=== PATIENT | male | born 1950 | race Caucasian/White ===

== ENCOUNTER 2016-03-16 00:32 | Inpatient (IN) | payer OTHER ==
[~2016-03-16] VITALS: Ht 180.3 cm; Wt 108.5 kg
[2016-03-16] VITALS (14 sets, daily range): BP systolic 156–193; BP diastolic 79–112; PULSE 86–108; RESP 18–24; TEMP 98.5; Ht 180.3 cm; Wt 108.5 kg
[~2016-03-16 00:32] MED LIST: FERR140T2 PO; GEMF600T PO; LISI30TA47 PO; NIFE90TA4 PO; [UNRECOGNIZED DRUG - CODE] PO
[2016-03-16] MEDS ORDERED: METHYLPREDNISOLONE 125 MG INJ IV STA (00:45)
[2016-03-16] MEDS ORDERED: ALBUTEROL 0.5% (NEB) 2.5 MG/0.5 ML AMP INH STA (00:45)
[2016-03-16] MEDS ORDERED: IPRATROPIUM (NEB) 0.5 MG/2.5 ML AMP INH STA (00:45)
[2016-03-16 01:11] LABS: BASOPHIL # 0.1 10^3/ul (0.0-0.1); BASOPHILS % 0.8 % (0.0-2.0); EOSINOPHILS # 0.6 10^3/ul (0.0-0.5); EOSINOPHILS % 5.5 % (0.0-7.0); HEMATOCRIT 46.2 % (42.0-52.0); HEMOGLOBIN 15.1 g/dl (14.0-18.0); LYMPHOCYTES # 3.5 10^3/ul (0.8-2.9); LYMPHOCYTES % 33.2 % (15.0-51.0); MEAN CORPUSCULAR HEMOGLOBIN 26.9 pg (29.0-33.0); MEAN CORPUSCULAR HGB CONC 32.6 g/dl (32.0-37.0); MEAN CORPUSCULAR VOLUME 82.6 fl (82.0-101.0); MEAN PLATELET VOLUME 9.9 fl (7.4-10.4); MONOCYTE # 0.9 10^3/ul (0.3-0.9); MONOCYTES % 9.1 % (0.0-11.0); NEUTROPHIL # 5.4 10^3/ul (1.6-7.5); NEUTROPHILS % 51.4 % (39.0-77.0); PLATELET COUNT 333 10^3/UL (140-440); RED CELL DISTRIBUTION WIDTH 15.2 % (11.5-14.5); UNCORRECTED WBC 10.5 10^3/ul (4.8-10.8); WHITE BLOOD COUNT 10.5 10^3/ul (4.8-10.8)
[2016-03-16 01:20] LABS: CONDITION 1; LH ANALYZER COMMENTS 1
[2016-03-16 01:27] LABS: INR 0.97; PARTIAL THROMBOPLASTIN TIME 26.6 Sec (25.0-35.0); PROTIME 12.9 Sec (12.2-14.2)
[2016-03-16 01:29] LABS: POTASSIUM 4.1 mmol/L (3.5-5.1)
[2016-03-16 01:31] LABS: CREATININE 1.31 mg/dl (0.61-1.24)
[2016-03-16 01:32] LABS: CALCIUM 8.7 mg/dl (8.4-10.2)
[2016-03-16 01:44] LABS: TROPONIN-I 0.048 ng/ml (0.00-0.12)
--- NOTE | 2016-03-16 02:18 | RADRPT ---
PROCEDURE: CHEST - 1 VIEW CLINICAL INDICATION: 65-year-old male with chest pain and shortness of breath. TECHNIQUE: A single frontal AP view of the chest was performed portably. The images were reviewed on a PACS workstation. COMPARISON: Chest x-ray January 11, 2013. FINDINGS: The cardiomediastinal silhouette is enlarged but without significant interval change. There is mild -to-moderate pulmonary vascular congestion. There is a shallow inspiration. There is mild bibasila r subsegmental atelectasis. There is no evidence for focal consolidation. There is no evidence for pneumothorax. The osseous structures are intact. IMPRESSION: 1. Cardiomegaly. 2. Pulmonary vascular congestion. 3. Shallow inspiration. 4. Mild bibasilar subsegmental atelectasis. .Jim Nino MD, Date Time Electronically viewed and signed by .Jim Nino MD, MD on 03/16/2016 02:17 .M/
[2016-03-16] MEDS ORDERED: ONDANSETRON 4 MG INJ IV PRN (03:00)
[2016-03-16] MEDS ORDERED: ACETAMINOPHEN 325 MG TAB PO PRN (03:00)
--- NOTE | 2016-03-16 03:05 | ERA ---
ER Documentation Chief Complaint Date/Time DATE: 03/16/16 TIME: 03:01 Chief Complaint shortness of breath 2 hours ago, chest congestion HPI This is a 65-year-old male presents to the emergency room for evaluation of shortness of breath. The patient does state that he felt himself wheezing approximately 2 days ago and has been getting progressively worse. He came in today for evaluation of shortness of breath which progressed to the point which he was having difficulty breathing at rest. The patient states that he has been admitted in the hospital in the past for COPD, and for fluid on his lungs. ROS All systems reviewed and are negative except as per history of present illness. Medications Home Meds Reported Medications Ferrous Sulfate* (Ferrous Sulfate*) 140 Mg Tablet.er, 140 MG PO DAILY 01/11/13 Lisinopril* (Lisinopril*) 30 Mg Tablet, 20 MG PO DAILY 10/06/12 Gemfibrozil* (Lopid*) 600 Mg Tablet, 600 MG PO BID 10/12/09 Atenolol* (Tenormin*) 100 Mg Tablet, 25 MG PO DAILY 10/12/09 Nifedipine (Nifediac Cc) 90 Mg Tablet.sa, 60 MG PO DAILY 10/12/09 Allergies Allergies: Coded Allergies: No Known Allergies (Verified Allergy, Mild, 01/11/13) PMhx/Soc History of Surgery: Yes (GASTRIC SLEEVE) Anesthesia Reaction: No Hx Neurological Disorder: Yes (CVA) Hx Respiratory Disorders: No Hx Cardiac Disorders: Yes (HTN, HIGH CHOLESTEROL) Hx Psychiatric Problems: No Hx Miscellaneous Medical Probl: Yes (DM -- resolved after bariatric surgery) Hx Alcohol Use: No Hx Substance Use: No Hx Tobacco Use: Yes Smoking Status: Former smoker Physical Exam Vitals Vital Signs Date Time Temp Pulse Resp B/P Pulse Ox O2 Delivery O2 Flow Rate FiO2 03/16/16 02:47 86 24 164/97 97 Nasal Cannula 2.0 03/16/16 00:58 83 24 98 Nasal Cannula 4.0 03/16/16 00:58 98 4.0 03/16/16 00:50 Non Rebreather 15 03/16/16 00:36 98.5 102 20 215/119 87 Physical Exam INITIAL VITAL SIGNS: Reviewed by me GENERAL: The patient is well developed and appropriate for usual state of health in no apparent distress HEENT: Pupils equal, round, and reactive to light. EOMI. There is no scleral icterus. NECK: C-spine is soft and supple, there is no meningismus. There is no cervical lymphadenopathy. LUNGS: Rales auscultated in the bilateral lower lobes, with diffuse wheezing in all lobes. HEART: Regular rate and rhythm, no murmurs, clicks, rubs or gallops. ABDOMEN: Soft, non-tender, non-distended. There are bowel sounds in all four quadrants. No rebound or guarding. EXTREMITIES: There is no peripheral cyanosis or edema. No focal swelling or erythema. NEUROLOGICAL: The patient moves all four extremities with 5/5 strength. Cranial nerves II - XII are intact. Normal gait. Alert and oriented SKIN: There is no apparent rash or petechiae. HEME/LYMPHATIC: There is no evidence of excessive bruising or lymphedema. PSYCHIATRIC: The patient does not appear anxious or depressed. Result Diagram: 03/16/16 0052 03/16/16 0052 Results 24 hrs Laboratory Tests Test 03/16/16 00:52 Activated Partial Thromboplast Time 26.6Sec Anion Gap 16 B-Type Natriuretic Peptide 1850PG/ML Basophils # 0.110^3/ul Basophils % 0.8% Blood Morphology Comment Blood Urea Nitrogen 25mg/dl Calcium Level 8.7mg/dl Carbon Dioxide Level 27mmol/L Chloride Level 108mmol/L Creatinine 1.31mg/dl Eosinophils # 0.610^3/ul Eosinophils % 5.5% Glucose Level 114mg/dl Hematocrit 46.2% Hemoglobin 15.1g/dl INR International Normalized Ratio 0.97 Lymphocytes # 3.510^3/ul Lymphocytes % 33.2% Mean Corpuscular Hemoglobin 26.9pg Mean Corpuscular Hemoglobin Concent 32.6g/dl Mean Corpuscular Volume 82.6fl Mean Platelet Volume 9.9fl Monocytes # 0.910^3/ul Monocytes % 9.1% Neutrophils # 5.410^3/ul Neutrophils % 51.4% Nucleated Red Blood Cells # 0.010^3/ul Nucleated Red Blood Cells % 0.0/100WBC Platelet Count 39133^3/UL Potassium Level 4.1mmol/L Prothrombin Time 12.9Sec Prothrombin Time Ratio 1.0 Red Blood Count 5.6010^6/ul Red Cell Distribution Width 15.2% Sodium Level 147mmol/L Troponin I 0.048ng/ml White Blood Count 10.510^3/ul Current Medications Medications (Trade) Dose Ordered Sig/Delmi Route PRN Reason Start Time Stop Time Status Last Admin Dose Admin Albuterol (Proventil 0.5% (Neb)) 15 mg ONCE STAT INH 03/16/16 00:45 03/16/16 00:47 DC 03/16/16 00:56 Ipratropium [place] (Atrovent 0.02% (Neb)) 1 mg ONCE STAT INH 03/16/16 00:45 03/16/16 00:47 DC 03/16/16 00:56 Methylprednisolone Sodium Succinate (Solu-Medrol) 125 mg ONCE STAT IV 03/16/16 00:45 03/16/16 00:47 DC 03/16/16 00:58 Procedures/MDM EKG: #1 Rate/Rhythm: Left bundle branch block QRS, ST, T-waves: [No changes consistent w/ acute ischemia] Impression: Left bundle branch block EKG: #2 Rate/Rhythm: Left bundle branch block QRS, ST, T-waves: [No changes consistent w/ acute ischemia] Impression: Left bundle branch block EKG: #3 Rate/Rhythm: Left bundle branch block QRS, ST, T-waves: [No changes consistent w/ acute ischemia] Impression: Left bundle branch block Chest X-ray 1V Interpreted by me: Soft Tissue: No acute abnormalities Bones: No acute abnormalities Mediastinum/Cardiac Silhouette/Lungs: Pulmonary vascular congestion, cardiomegaly This is a 65-year-old male presents to the emergency room for evaluation of shortness of breath. When I evaluated this patient he had a pulse oxygenation of 87% on room air. He was quickly placed on a nonrebreather. He I did auscultate diffuse rales and wheezing in his lungs and subsequently placed the patient on a breathing treatment with albuterol, Atrovent, and Solu-Medrol. Chest x-ray does show pulmonary vascular congestion and given the patient's history of CHF and a diffuse rales feel that he is fluid overloaded as well as suffering from a COPD exacerbation with hypoxia. The patient will will be placed in for admission at this time on a telemetry floor under the care of Dr. williamson. I did speak to this patient's primary care physician, Stephanie who would like this patient admits her panel physician. Critical Care: Excluding all billable procedures Time: 37 minutes Treatments/Evaluations: Emergent and rapid respiratory assessment and management with continuous monitoring. Advanced airway equipment at the ready, while the patient's respiratory symptoms were stabilized. Departure Diagnosis: Primary Impression: Respiratory failure with hypoxia Additional Impressions: Acute decompensated heart failure Acute bronchitis with COPD Renal insufficiency Condition: Serious PIPO BROWN DO Mar 16, 2016 03:05
[2016-03-16] MEDS ORDERED: FUROSEMIDE 20 MG INJ IV ONE (03:30)
[2016-03-16] MEDS ORDERED: ATOR80TA75 PO (04:14)
[2016-03-16] MEDS ORDERED: CLOP75TA28 PO (04:14)
[2016-03-16] MEDS ORDERED: [UNRECOGNIZED DRUG - OTHER] TRANSDERM (04:14)
[2016-03-16] MEDS ORDERED: CLON-379 PO (04:14)
[2016-03-16] MEDS ORDERED: SILD20TA PO (04:14)
[2016-03-16] MEDS ORDERED: ALFU10TA2 PO (04:14)
[2016-03-16] MEDS ORDERED: MIRA25TA PO (04:14)
[2016-03-16] MEDS ORDERED: LISI40TA9 PO (04:14)
[2016-03-16] MEDS ORDERED: MAGNESIUM HYDROXIDE 30ML CUP PO PRN (05:00)
[2016-03-16] MEDS ORDERED: ALBUTEROL/IPRATROPIUM (NEB) 3 ML AMP HHN PRN (05:00)
[2016-03-16] MEDS ORDERED: morphine 2 MG INJ IV PRN (05:00)
[2016-03-16] MEDS: ALBUTEROL/IPRATROPIUM (NEB) 3 ML AMP HHN SCH ×5 (05:00→21:02)
[2016-03-16] MEDS ORDERED: FUROSEMIDE 20 MG INJ IV SCH (06:00)
[2016-03-16] MEDS: hydrALAzine 20 MG INJ IV PRN ×2 (06:03→11:56)
[2016-03-16] MEDS: MIRABEGRON XX SCH ×2 (08:00→15:01)
[2016-03-16] MEDS: ACETAMINOPHEN 325 MG TAB PO PRN ×2 (08:17→15:55)
[2016-03-16] MEDS: SENNA TAB PO SCH (08:21)
[2016-03-16] MEDS: CLOPIDOGREL 75 MG TAB PO SCH (08:22)
[2016-03-16] MEDS: LISINOPRIL 20 MG TAB PO SCH (08:23)
[2016-03-16] MEDS: HEPARIN 5,000 UNIT/0.5 ML SYG SC SCH ×2 (08:27→21:21)
--- NOTE | 2016-03-16 08:32 | HP ---
DATE OF ADMISSION: 03/16/2016 TIME SEEN: 6 a.m. CHIEF COMPLAINT: Shortness of breath. HISTORY OF PRESENT ILLNESS: The patient is a 65-year-old male with a history of CVA with left-sided weakness, CAD, BPH, abdominal aortic aneurysm, gastritis, diabetes, hypertension, dyslipidemia, who presented to the emergency department with his complaining of shortness of breath and cough. His symptoms have been going on for 1 week and have been progressively getting worse, and as such, mor bergman came to the ER for evaluation. He denied chest pain, nausea, vomiting, diaphoresis, fever, chills , abdominal pain. When he presented to the ER blood pressure was 215/119, heart rate 102, respiratory rate 20, tempera ture 98.5, and he was hypoxic, with an oxygen saturation of 87% on room air. Laboratory value shows a sodium of 147, BUN 25, creatinine 1.31. Otherwise, CBC and BMP are within normal limits. His fi rst troponin is negative and BNP is 1850. Chest x-ray shows cardiomegaly, pulmonary vascular conges tion, shallow inspiration, and mild bibasilar subsegmental atelectasis. The patient was treated wit h albuterol Atrovent, and was given 20 mg of IV Lasix, as well as 125 mg of Solu-Medrol, with improv ement in symptoms. The patient initially was on a 15-liter nonrebreather mask, which quickly improv ed, and now he is on 2 liters, saturating 97 to 100%. REVIEW OF SYSTEMS: A 12-point review of systems was performed and negative except as mentioned in t he HPI. PAST MEDICAL HISTORY: As per HPI. PAST SURGICAL HISTORY: He has a gastric sleeve/bariatric surgery. ALLERGIES: NO KNOWN DRUG ALLERGIES. HOME MEDICATIONS: 1. Alfuzosin. 2. Plavix. 3. Ferrous sulfate. 4. Atenolol. 5. Lipitor. 6. Clonidine. 7. Gemfibrozil. 8. Lisinopril. 9. Nifedipine. 10. Sildenafil. 11. Mirabegron. 12. Oxybutynin. PHYSICAL EXAMINATION: VITAL SIGNS: Recent blood pressure 193/94, heart rate 86, respiratory rate 24, temperature 97.9, ox ygen saturation was 98% on 2 liters. GENERAL: In no acute distress. He is somehow sleepy but arousable and answering questions appropri ately. Obese. HEENT: No obvious head deformity. Pupils are reactive to light. Extraocular muscles intact. CARDIOVASCULAR: Tachycardic, with regular rhythm. LUNGS: He has decreased breath sounds at the bases, with minimal scattered wheezing. ABDOMEN: Soft, nontender, nondistended. Positive bowel sounds. EXTREMITIES: No edema. Slight weakness on the left side of his body. Sensation intact. LABORATORY: Pertinent positives as mentioned in the HPI. IMAGING: Chest x-ray, with results as mentioned in the HPI. IMPRESSION: 1. Shortness of breath, likely a combination of congestive heart failure and chronic obstructive pu lmonary disease exacerbation. 2. History of cerebrovascular accident, with residual left-sided weakness 3. Diabetes. 4. Hypertensive urgency. 5. Probable history of coronary artery disease. 6. Benign prostatic hypertrophy. 7. History of abdominal aortic aneurysm. 8. History of gastritis. PLAN: The patient will be treated both for CHF and COPD exacerbation. He will be diuresed with Las ix. He will be placed on oxygen, bronchodilators, and steroids. Strict ins and outs and will monit or his urine output. He will be continued with his home medications, including his antihypertensive s, but will require adjustment/addition for better blood pressure control. Will obtain a 2D echo. For his diabetes, he will be on insulin while in-house. Further workup and management per clinical course. Dictated By: LUIS ENRIQUE MILLAN/FELICITY Conf#: [id number] DID#: [id number]
[2016-03-16] MEDS ORDERED: SPECIAL NON-STANDARD MEDICATION PO SCH (09:00)
[2016-03-16] MEDS ORDERED: METHYLPREDNISOLONE 125 MG INJ IV SCH (09:00)
[2016-03-16] MEDS ORDERED: OXYBUTYNIN TRANSDERM SCH (09:00)
[2016-03-16 10:05] LABS: CK-MB 1.5 ng/ml (0.0-2.4)
[2016-03-16 10:17] LABS: TROPONIN-I 0.14 ng/ml (0.00-0.12)
--- NOTE | 2016-03-16 10:21 | QN ---
Documentation Comment The patient was seen and examined. Cardiology and pulmonology consult was called. 2D echocardiogram was ordered. Case discussed with Dr. Live. LYNSEY JESSICA NP Mar 16, 2016 10:21
--- NOTE | 2016-03-16 12:11 | CONS ---
Date/Time of Note Date/Time of Note DATE: 03/16/16 TIME: 12:03 Assessment/Plan Assessment/Plan Additional Assessment/Plan Assessment recommendations; 1. Patient admitted with congestive heart failure exacerbation. 2. Poorly controlled hypertension. Next 3. Poor ejection fraction. Next 4. Likely diastolic dysfunction with hypertensive cardiomyopathy. 5. Sleep apnea. 6. Obesity. 7. Hyperlipidemia. 8. Currently no evidence of any asthma exacerbation or any evidence of infection. Next Increase Lasix to 40 mg IV every 12 hours. Resume metoprolol 25 mg twice daily. Continue RM inhibitor. Continue CPAP overnight. Discontinue Solu- Medrol. Cardiology consult is pending. Patient may need a coronary angiogram. Consultation Date/Type/Reason Admit Date/Time Mar 16, 2016 at 03:00 Date of Consultation: Mar 16, 2016 Type of Consultation: Pulmonary Reason for Consultation Pulmonary consultation obtained for evaluation of shortness of breath. History of presenting illness; patient is a 65-year-old pleasant white male who was admitted today with complaints of shortness of breath going on for the last 2 days without any associated chest pain, pressure or any wheezing. Patient denies any fever, any sputum production or hemoptysis. Upon evaluation a chest x-ray was done which is showing significant congestive heart failure the patient has subsequently been admitted. According to him he is "200%" better. Patient has been fairly active until recently when the symptoms started just a few days ago. Denies any high fever, chills any audio aches, myalgias or arthralgias to suggest any viral illness. Denies any abdominal pain, nausea, vomiting. Past medical history: 1. History of sleep apnea currently on CPAP at home. 2. History of CVA a few years ago affecting his left side of the body, patient does have occasional difficulty walking. 3. Severe hypertension which based upon patient's description is essentially very poorly controlled. 4. History of bariatric surgery several years ago she lost 100 pounds but then gained 35 pounds.. 5. History of hyperlipidemia. 6. BPH. 7. No known history of any coronary artery disease or any known history of congestive heart failure per patient. Medications; were reviewed. Allergies; are none. Social history; patient quit smoking several years ago has a long-standing history of 3 pack a day spending. Of at least 15 years. History of alcohol abuse in the past. Next Family history; patient is he has 3 children. 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 Review of systems; denies any headache, any visual changes. Any hearing loss. Any seizures. Any chest pain. Does complain of shortness of breath which is significantly improved since yesterday. Denies any angina. Any wheezing. Any cough, sputum production, hemoptysis. Any abdominal pain. Does complain of frequency of urination, nocturia. Denies any GI symptoms. Sleep apnea is stable. Social History Smoking Status: Former smoker Exam/Review of Systems Vital Signs Vitals Vital Signs Date Time Temp Pulse Resp B/P Pulse Ox O2 Delivery O2 Flow Rate FiO2 03/16/16 11:24 97.8 100 20 180/111 94 03/16/16 10:10 2.0 03/16/16 10:10 Nasal Cannula Intake and Output 03/15/16 03/15/16 03/16/16 15:00 23:00 07:00 Intake Total 250 ml Output Total 600 ml Balance -350 ml Exam HEENT examination; supple neck, positive JVD. No lymphadenopathy. Patient has good dentition. Pupils are midsize reactive to light bilaterally. No thyromegaly. No neck bruits. Pharynx is clear. Chest examination; diminished but clear breath sounds bilaterally. No added sounds. S1-S2 audible no murmurs. Regular rate and rhythm. Abdomen examination; protuberant, nontender. No organomegaly. Bowel sounds audible. Extremity examination; no peripheral edema. Pulses 2+ bilaterally. HARD METALS ENGRAVER HAND examination; cranial nerves are intact. No focal motor deficit. Chest x-ray was reviewed from today which is showing sofy congestive heart failure with significant cardiomegaly. Patient just had a bedside echocardiogram and according to the field support technician the EF is around 25%. Results Result Diagram: 03/16/165103/16/16 0052 Results 24 hrs Laboratory Tests Test 03/16/16 00:52 03/16/16 09:05 Activated Partial Thromboplast Time 26.6 Anion Gap 16 B-Type Natriuretic Peptide 1850 H Basophils # 0.1 Basophils % 0.8 Blood Morphology Comment Blood Urea Nitrogen 25 H Calcium Level 8.7 Carbon Dioxide Level 27 Chloride Level 108 Creatinine 1.31 H Eosinophils # 0.6 H Eosinophils % 5.5 Glucose Level 114 Hematocrit 46.2 Hemoglobin 15.1 INR International Normalized Ratio 0.97 Lymphocytes # 3.5 H Lymphocytes % 33.2 Mean Corpuscular Hemoglobin 26.9 L Mean Corpuscular Hemoglobin Concent 32.6 Mean Corpuscular Volume 82.6 Mean Platelet Volume 9.9 Monocytes # 0.9 Monocytes % 9.1 Neutrophils # 5.4 Neutrophils % 51.4 Nucleated Red Blood Cells # 0.0 Nucleated Red Blood Cells % 0.0 Platelet Count 333 Potassium Level 4.1 Prothrombin Time 12.9 Prothrombin Time Ratio 1.0 Red Blood Count 5.60 Red Cell Distribution Width 15.2 H Sodium Level 147 H Troponin I 0.048 0.140 *H White Blood Count 10.5 Creatine Kinase 170 Creatine Kinase Index 0.9 Creatinine Kinase MB (Mass) 1.50 Medications Medications Current Medications Alfuzosin HCl (Uroxatral) 10 mg QHS PO ; Start 03/16/16 at 21:00 Atorvastatin Calcium (Lipitor) 40 mg QPM PO ; Start 03/16/16 at 21:00 Clopidogrel Bisulfate (plaVIX) 75 mg DAILY PO Last administered on 03/16/16 08: 22; Admin Dose 75 MG; Start 03/16/16 at 09:00 Lisinopril (Zestril) 40 mg DAILY PO Last administered on 03/16/16 08:23; Admin Dose 40 MG; Start 03/16/16 at 09:00 Oxybutynin Chloride (Oxytrol) 1 patch MoTh@09 TRANSDERM Last administered on 08:23; Admin Dose 1 PATCH; Start 03/16/16 at 09:00 Clonidine (Catapres) 0.1 mg TID PO Last administered on 03/16/16 08:22; Admin Dose 0.1 MG; Start 03/16/16 at 09:00 Non-Formulary Medication 1 ea DAILY PO ; Start 03/16/16 at 09:00; Status UNV Acetaminophen (Tylenol Tab) 650 mg Q6H PRN PO PAIN AND OR ELEVATED TEMP Last administered on 03/16/16 08:17; Admin Dose 650 MG; Start 03/16/16 at 05:00 Heparin Sodium (Porcine) (Heparin (5000 Units/0.5 ml)) 5,000 unit BID SC Last administered on 03/16/16 08:27; Admin Dose 5,000 UNIT; Start 03/16/16 at 09:00 Morphine Sulfate (morphine) 2 mg Q4H PRN IV PAIN; Start 03/16/16 at 05:00 Senna (Senokot) 2 tab DAILY PO ; Start 03/16/16 at 09:00 Magnesium Hydroxide (Milk Of Mag) 30 ml DAILY PRN PO CONSTIPATION; Start at 05:00 Furosemide (Lasix) 20 mg DAILY@06 IV Last administered on 03/16/16 06:03; Admin Dose 20 MG; Start 03/16/16 at 06:00 Methylprednisolone Sodium Succinate (Solu-Medrol) 80 mg DAILY IV Last administered on 03/16/16 08:21; Admin Dose 80 MG; Start 03/16/16 at 09:00 Hydralazine HCl (Apresoline) 10 mg Q4H PRN IV ELEVATED BLOOD PRESSURE Last administered on 03/16/16 06:03; Admin Dose 10 MG; Start 03/16/16 at 05:00 Miscellaneous Information (*Order Clarification Bulletin) MEDICATION REQUIRES CLARIFICATION:MYBET... Q8H XX ; Start 03/16/16 at 08:00 CARLA ROBERTSON Mar 16, 2016 12:11
--- NOTE | 2016-03-16 13:39 | RADRPT ---
Echocardiogram Report Patient Name: SHYAM BIGGS Gender: Male Date: 1950 Study Date: 16-Mar-2016 Oracle Programmer Analyst: RM [facility] Location: [id number] Ref. Physician: LYNSEY JESSICA Quality: Technically Difficult Study Procedures: Transthoracic echocardiogram with complete 2D, M-Mode, and doppler examination. Indications: Evaluate Left Ventricular function. 2D/M Mode Doppler Measurement Value Normal Ranges Measurement Value Normal Ranges LVIDd 2D 4.6 3.5 - 5.6 cm AV Peak Gibran 1.4 m/sec LVIDs 2D 3.8 2.1 - 4.1 cm AV Peak PG 8.0 mmHg FS 2D 18.8 % LVOT Peak Gibran 1.0 m/sec LVPWd 2D 1.4 0.6 - 1.1 cm LVOT Peak PG 4.0 mmHg IVSd 2D 1.5 0.6 - 1.1 cm MV E Peak Gibran 1.7 m/sec IVS/LVPW 2D 1.0 AoR Diam 2D 2.6 2.0 - 3.7 cm LA/Ao 2D 2 0 - 1 EDV 2D 98.6 cm3 ESV 2D 52.7 cm3 LA Dimen 2D 4.1 2.3 - 4.0 cm Findings Left Ventricle: Moderate concentric left ventricular hypertrophy. Mild enlargement of left ventricle cavity. Moderate left ventricular systolic dysfunction. Ejection fraction is visually estimated at 35 %. Abnormal Diastolic Function. Right Ventricle: Normal right ventricular size. Normal right ventricular systolic function. Left Atrium: There is mild enlargement of left atrium. Right Atrium: There is mild enlargement of right atrium. Mitral Valve: Mild mitral leaflet calcification. Mild mitral annular calcification. Trace mitral regurgitation. Aortic Valve: Normal appearance of the aortic valve. No significant aortic stenosis or insufficiency. Tricuspid Valve: Normal appearance and function of the tricuspid valve with trace physiologic regurgitation. Pulmonic Valve: Pulmonic valve not well visualized. Pericardium: Normal pericardium with no significant pericardial effusion. Aorta: Normal aortic root. IVC: Dilated IVC with respiratory collapse consistent with elevated right atrial pressure. Conclusions Moderate concentric left ventricular hypertrophy. Mild enlargement of left ventricle cavity. Moderate left ventricular systolic dysfunction. Ejection fraction is visually estimated at 35 %. Abnormal Diastolic Function. Normal right ventricular size. Normal right ventricular systolic function. There is mild enlargement of left atrium. There is mild enlargement of right atrium. No significant valvular stenosis or regurgitation seen. Normal pericardium with no significant pericardial effusion. Electronically Signed By: Troy Palumbo 16-Mar-2016 13:38:18 -0800 Patient Name: SHYAM BIGGS Study Date: 16-Mar-2016 [id number]
--- NOTE | 2016-03-16 13:49 | CONS ---
Date/Time of Note Date/Time of Note DATE: 03/16/16 TIME: 13:40 Assessment/Plan Assessment/Plan Additional Assessment/Plan Acute decompensated systolic and diastolic congestive heart failure Cardiomyopathy with ejection fraction 35% Respiratory failure Left ventricular hypertrophy History of CVA Hypertension Abnormal renal function -Patient still with significant volume overload and was recently put on BiPAP. Would give IV Bumex and drip. Continue oxygenation to maintain O2 sat greater than 92%. Patient being followed by pulmonary. Second set of troponins minimally elevated, would continue serial cardiac enzymes. Aspirin and statin therapy. Would hold off on beta nabila at the current time. Patient currently on RM inhibitor, would watch renal function closely.. Patient also with history of prostate issues. Will obtain renal ultrasound Consultation Date/Type/Reason Admit Date/Time Mar 16, 2016 at 03:00 Type of Consultation: cv Reason for Consultation Shortness of breath Hx of Present Illness This is a 65-year-old male with past medical history of hypertension, CVA who presents with progressive worsening shortness of breath over the past 5-6 days. Symptoms associated with wet cough which is mildly productive. He denies any fevers or chills, chest pain, dizziness or lightheadedness. His blood pressure has been elevated and his medications have been adjusted. He was told to start Lopressor yesterday for the first time, and he took his medication in the afternoon. That evening, patient with worsening shortness of breath. Patient was brought to the emergency room with improvement in symptoms after IV diuretics. Currently had worsening shortness of breath today and was just recently put on BiPAP. Denies any chest pain, dizziness or lightheadedness. 12 point review of systems was performed with all the pertinent positives and negatives mentioned above and all else is negative Past Medical History CVA Medical History: high cholesterol, hypertension Family History Significant Family History: no pertinent family hx Social History Smoking Status: Former smoker Other Social History Lives at home with his family Exam/Review of Systems Vital Signs Vitals Vital Signs Date Time Temp Pulse Resp B/P Pulse Ox O2 Delivery O2 Flow Rate FiO2 03/16/16 13:14 103 22 93 30 03/16/16 12:36 98.0 174/98 Nasal Cannula 3.0 Intake and Output 03/15/16 03/15/16 03/16/16 15:00 23:00 07:00 Intake Total 250 ml Output Total 600 ml Balance -350 ml Exam On BiPAP, able to give history Constitutional: alert, obese, oriented Head: normocephalic, other (On BiPAP) Neck: supple Respiratory: other (Coarse breath sounds bilaterally, scattered crackles, minimal end expiratory wheezing) Cardiovascular: other (S1-S2 heard), regular rate and rhythm Gastrointestinal: bowel sounds, non-tender, other (No guarding), soft Extremities: edema (Trace) Results Result Diagram: 03/16/16 0052 03/16/16 0052 Results 24 hrs Laboratory Tests Test 03/16/16 00:52 03/16/16 09:05 Activated Partial Thromboplast Time 26.6 Anion Gap 16 B-Type Natriuretic Peptide 1850 H Basophils # 0.1 Basophils % 0.8 Blood Morphology Comment Blood Urea Nitrogen 25 H Calcium Level 8.7 Carbon Dioxide Level 27 Chloride Level 108 Creatinine 1.31 H Eosinophils # 0.6 H Eosinophils % 5.5 Glucose Level 114 Hematocrit 46.2 Hemoglobin 15.1 INR International Normalized Ratio 0.97 Lymphocytes # 3.5 H Lymphocytes % 33.2 Mean Corpuscular Hemoglobin 26.9 L Mean Corpuscular Hemoglobin Concent 32.6 Mean Corpuscular Volume 82.6 Mean Platelet Volume 9.9 Monocytes # 0.9 Monocytes % 9.1 Neutrophils # 5.4 Neutrophils % 51.4 Nucleated Red Blood Cells # 0.0 Nucleated Red Blood Cells % 0.0 Platelet Count 333 Potassium Level 4.1 Prothrombin Time 12.9 Prothrombin Time Ratio 1.0 Red Blood Count 5.60 Red Cell Distribution Width 15.2 H Sodium Level 147 H Troponin I 0.048 0.140 *H White Blood Count 10.5 Creatine Kinase 170 Creatine Kinase Index 0.9 Creatinine Kinase MB (Mass) 1.50 Medications Medications Current Medications Alfuzosin HCl (Uroxatral) 10 mg QHS PO ; Start 03/16/16 at 21:00 Atorvastatin Calcium (Lipitor) 40 mg QPM PO ; Start 03/16/16 at 21:00 Clopidogrel Bisulfate (plaVIX) 75 mg DAILY PO Last administered on 03/16/16 08: 22; Admin Dose 75 MG; Start 03/16/16 at 09:00 Lisinopril (Zestril) 40 mg DAILY PO Last administered on 03/16/16 08:23; Admin Dose 40 MG; Start 03/16/16 at 09:00 Oxybutynin Chloride (Oxytrol) 1 patch MoTh@09 TRANSDERM Last administered on 08:23; Admin Dose 1 PATCH; Start 03/16/16 at 09:00 Clonidine (Catapres) 0.1 mg TID PO Last administered on 03/16/16 12:36; Admin Dose 0.1 MG; Start 03/16/16 at 09:00 Non-Formulary Medication 1 ea DAILY PO ; Start 03/16/16 at 09:00; Status UNV Acetaminophen (Tylenol Tab) 650 mg Q6H PRN PO PAIN AND OR ELEVATED TEMP Last administered on 03/16/16 08:17; Admin Dose 650 MG; Start 03/16/16 at 05:00 Heparin Sodium (Porcine) (Heparin (5000 Units/0.5 ml)) 5,000 unit BID SC Last administered on 03/16/16 08:27; Admin Dose 5,000 UNIT; Start 03/16/16 at 09:00 Morphine Sulfate (morphine) 2 mg Q4H PRN IV PAIN; Start 03/16/16 at 05:00 Senna (Senokot) 2 tab DAILY PO ; Start 03/16/16 at 09:00 Magnesium Hydroxide (Milk Of Mag) 30 ml DAILY PRN PO CONSTIPATION; Start at 05:00 Hydralazine HCl (Apresoline) 10 mg Q4H PRN IV ELEVATED BLOOD PRESSURE Last administered on 03/16/16 11:56; Admin Dose 10 MG; Start 03/16/16 at 05:00 Miscellaneous Information (*Order Clarification Bulletin) MEDICATION REQUIRES CLARIFICATION:MYBET... Q8H XX ; Start 03/16/16 at 08:00 Metoprolol Tartrate (Lopressor) 25 mg BID PO ; Start 03/16/16 at 21:00 Bumetanide 1 mg 1 mg NOW ONCE IV ; Start 03/16/16 at 14:00; Stop 03/16/16 at 14: 01; Status UNV Bumetanide/ Dextrose (Bumex/D5W) 30 ml @ 16.667 mls/ hr Q1H48M ONCE IV ; Start 03/16/16 at 14:00; Stop 03/16/16 at 15:47; Status UNV Procedures Procedures ECG demonstrates sinus rhythm at 86 bpm, left bundle branch block, nonspecific STT wave abnormalities Troy Palumbo DO Mar 16, 2016 13:49
[2016-03-16] MEDS ORDERED: BUMETANIDE 3 MG in DEXTROSE 5% 18 ML IV ONE (14:00)
[2016-03-16] MEDS ORDERED: BUMETANIDE 1 MG INJ IV ONE (14:00)
[2016-03-16] MEDS: ASPIRIN 81 MG TAB PO SCH (14:00)
[2016-03-16 14:33] LABS: Allen Test ACCEPTAB; MODE MASK - BIPAP
[2016-03-16 14:34] LABS: CK-MB 1.42 ng/ml (0.0-2.4)
[2016-03-16 14:36] LABS: TROPONIN-I 0.099 ng/ml (0.00-0.12)
[2016-03-16 14:39] LABS: AADO2 Arterial 98.5 mmHg (7.0-24.0); Arterial Base Excess -3.6 mmol/L (-3.0-3); Arterial Fraction of Oxyhgb 94.2 % (93.0-99.0); Arterial MetHb 0.3 % (0.0-1.5); Arterial Total Hemglobin 15.4 g/dl (12.0-18.0)
--- NOTE | 2016-03-16 16:19 | RADRPT ---
PROCEDURE: US Retroperitoneum CLINICAL INDICATION: Renal dysfunction, pain TECHNIQUE: Multiple sonographic images of the kidneys and bladder were obtained. Evaluation was p erformed as well with isaacs scale and color and Doppler evaluation using a curved array transducer. The images were reviewed on a high-resolution PACS workstation. COMPARISON: No prior studies are available for comparison. FINDINGS: The kidneys are well visualized. The right kidney measures 10.5 cm in length. The left kidney measu res 10.4 cm in length. Nonspecific mild amount of left perinephric fluid is identified. No solid jones al mass, calculus, or hydronephrosis is seen. The bladder is grossly unremarkable. IMPRESSION: 1. Nonspecific mild amount of left perirenal fluid is noted, of uncertain etiology. CT may be use ful for further evaluation, as clinically warranted. 2. No hydronephrosis or obstructive uropathy is seen bilaterally. RPTAT: QQ .Rosalio Khan MD, MD Date Time Electronically viewed and signed by .Rosalio Khan MD, on 03/16/2016 16:19 .R/
[2016-03-16] MEDS ORDERED: FUROSEMIDE 40 MG INJ IV SCH (18:00)
[2016-03-16 19:53] LABS: CK-MB 1.59 ng/ml (0.0-2.4)
[2016-03-16 19:55] LABS: TROPONIN-I 0.098 ng/ml (0.00-0.12)
[2016-03-16] MEDS ORDERED: METOPROLOL 25 MG TAB PO SCH (21:00)
[2016-03-16] MEDS: ATORVASTATIN 40 MG TAB PO SCH (21:13)
[2016-03-16] MEDS: ZOLPIDEM 5 MG TAB PO PRN (21:13)
[2016-03-16] MEDS: ALFUZOSIN (SR) 10 MG TAB PO SCH (21:14)
[2016-03-17] VITALS (15 sets, daily range): BP systolic 127–200; BP diastolic 57–103; PULSE 81–139; RESP 18–22
[2016-03-17] MEDS: ALBUTEROL/IPRATROPIUM (NEB) 3 ML AMP HHN SCH ×2 (01:19→05:41)
[2016-03-17] MEDS: BUMETANIDE 1 MG INJ IV SCH ×2 (05:46→17:01)
[2016-03-17 06:18] LABS: ADD SCAN DIFF NO
[2016-03-17 06:19] LABS: BASOPHILS % 0.1 % (0.0-2.0); HEMATOCRIT 43.5 % (42.0-52.0); HEMOGLOBIN 14.1 g/dl (14.0-18.0); LYMPHOCYTES # 1.4 10^3/ul (0.8-2.9); LYMPHOCYTES % 10.3 % (15.0-51.0); MEAN CORPUSCULAR HGB CONC 32.4 g/dl (32.0-37.0); MEAN CORPUSCULAR VOLUME 83.2 fl (82.0-101.0); MONOCYTE # 1.3 10^3/ul (0.3-0.9); MONOCYTES % 9.5 % (0.0-11.0); NEUTROPHIL # 11.1 10^3/ul (1.6-7.5); NEUTROPHILS % 79.7 % (39.0-77.0); PLATELET COUNT 319 10^3/UL (140-415); RED BLOOD COUNT 5.23 10^6/ul (4.70-6.10); RED CELL DISTRIBUTION WIDTH 14.8 % (11.5-14.5); WHITE BLOOD COUNT 13.9 10^3/ul (4.8-10.8)
[2016-03-17 06:49] LABS: ALBUMIN 3.7 g/dl (3.3-4.9); POTASSIUM 3.8 mmol/L (3.5-5.1)
[2016-03-17 06:50] LABS: TROPONIN-I 0.12 ng/ml (0.00-0.12)
[2016-03-17 06:51] LABS: CREATININE 1.25 mg/dl (0.61-1.24)
[2016-03-17 06:52] LABS: ALBUMIN/GLOBULIN RATIO 1.19; BILIRUBIN,INDIRECT 0.4 mg/dl (0-1.1); BILIRUBIN,TOTAL 0.4 mg/dl (0.2-1.3); TOTAL PROTEIN 6.8 g/dl (6.1-8.1)
[2016-03-17 06:53] LABS: CALCIUM 8.7 mg/dl (8.4-10.2)
[2016-03-17 07:02] LABS: PHOSPHORUS 3.4 mg/dl (2.5-4.9)
[2016-03-17 07:03] LABS: CHOL/HDL RATIO 2.7 RATIO; MAGNESIUM 1.9 mg/dl (1.7-2.5)
[2016-03-17 07:08] LABS: CK-MB 2.01 ng/ml (0.0-2.4)
[2016-03-17 07:09] LABS: THYROID STIMULATING HORMONE 1.71 MIU/L (0.465-4.680)
[2016-03-17] MEDS: MIRABEGRON XX SCH ×3 (08:00→16:00)
[2016-03-17] MEDS: SENNA TAB PO SCH (09:00)
[2016-03-17] MEDS: CLOPIDOGREL 75 MG TAB PO SCH (09:14)
[2016-03-17] MEDS: ASPIRIN 81 MG TAB PO SCH (09:14)
[2016-03-17] MEDS: LISINOPRIL 20 MG TAB PO SCH (09:16)
[2016-03-17] MEDS: HEPARIN 5,000 UNIT/0.5 ML SYG SC SCH ×2 (09:21→21:04)
[2016-03-17] MEDS ORDERED: GLUCAGON 1 MG INJ IM PRN (10:00)
[2016-03-17] MEDS ORDERED: GLUCOSE GEL 15 GRAM TUBE PO PRN ×2 (10:00)
[2016-03-17] MEDS ORDERED: GLUCOSE GEL 15 GRAM TUBE BUCCAL PRN (10:00)
[2016-03-17] MEDS ORDERED: DEXTROSE 50% 50 ML SYRINGE IV PRN ×2 (10:00)
--- NOTE | 2016-03-17 11:04 | PN ---
DATE: 03/17/2016 SUBJECTIVE DATA: Verbalizes that he is breathing better. Denies any chest pain. OBJECTIVE DATA: VITAL SIGNS: Temperature 98.0, pulse rate 89, respiratory rate 18, blood pressure 131/78, oxygen saturation 98% on low flow O2. GENERAL: This is an obese male sitting in bed in no apparent distress. HEENT: Head normocephalic and atraumatic. Eyes: Anicteric sclerae. Conjunctivae clear. ENT: Nasal septum is midline. Oral mucosa is moist. NECK: Supple. No JVD noticed. RESPIRATORY: Bilaterally diminished breath sounds. No use of accessory muscles of respiration. A few fine rales heard at the bases. CARDIAC: Regular rate and rhythm. No murmurs heard. ABDOMEN: Soft, nontender, and nondistended. Bowel sounds positive in all 4 quadrants. GENITOURINARY: Deferred. EXTREMITIES: No cyanosis, no clubbing. Trace bilateral pedal edema. Peripheral pulses palpable. NEUROLOGIC: The patient is awake, alert, and oriented. Cranial nerves are grossly intact. LABORATORY AND DIAGNOSTIC DATA: WBC 13.9, hemoglobin 14.1, hematocrit 43.5, platelet count 319. Sodium 142, potassium 3.8, chloride 100, carbon dioxide 23 , anion gap 20, BUN 36, creatinine 1.25, glucose 132, calcium 8.7, phosphorus 3.4, magnesium 1.9. ASSESSMENT AND PLAN: 1. Acute on chronic congestive heart failure exacerbation. Systolic and diastolic dysfunction. Continue diuresis as per cardiology. Continue supplemental oxygen and inhaled bronchodilators. 2. Cardiomyopathy with ejection fraction of 35%, most probably ischemic cardiomyopathy. The patient on RM inhibitors. Cardiology following the patient. 3. Coronary artery disease. Continue dual antiplatelet therapy. 4. Chronic kidney disease. Will monitor the BUN and creatinine closely. Will use nephrotoxic medications with caution . 5. Obstructive sleep apnea. Continue nocturnal CPAP therapy. 6. Type 2 diabetes mellitus. Hemoglobin A1c 7.2. Continue sliding scale insulin. Blood sugars are well controlled. 7. Essential hypertension. Continue antihypertensives. Blood pressure fairly well controlled. 8. Fluid, electrolytes, and nutrition. Continue carbohydrate controlled low cholesterol diet. 9. Deep venous thrombosis prophylaxis. Subcutaneous heparin. 10. Gastrointestinal prophylaxis. Histamine 2 receptor blockers. 11. Plan. Continue diuresis while carefully watching renal function. Continue inhaled bronchodilators and supplemental oxygen. The case was discussed with Dr. Live. LYNSEY LIVE MD, AM/FELICITY Conf#: [id number] DID#: [id number] MTDD
--- NOTE | 2016-03-17 11:07 | CONS ---
Date/Time of Note Date/Time of Note DATE: 03/17/16 TIME: 11:05 Assessment/Plan Assessment/Plan Additional Assessment/Plan Assessment and recommendations; next 1. Patient admitted for decompensated congestive heart failure with significant clinical improvement with and with diuresis. 2. Severe hypertension well controlled now on current treatment regimen. 3. Underlying sleep apnea. 4. Obesity. 5. History of CVA. Continue current treatment. Monitor renal function Consultation Date/Type/Reason Admit Date/Time Mar 16, 2016 at 03:00 Initial Consult Date 03/16/16 Type of Consultation: Pulmonary 24 HR Interval Summary Free Text/Dictation Patient condition is continually improving according to the patient he is markedly improved compared to when he was admitted 2 days ago. Tautness of breath has resolved. Denies any chest pain. Patient slept well last night using his own CPAP machine. General examination; middle-aged man currently in no distress. Exam/Review of Systems Vital Signs Vitals Vital Signs Date Time Temp Pulse Resp B/P Pulse Ox O2 Delivery O2 Flow Rate FiO2 03/17/16 08:45 89 03/17/16 08:30 Nasal Cannula 3.0 03/17/16 07:50 98.0 18 131/78 98 03/17/16 05:41 21 Intake and Output 03/16/16 03/16/16 03/17/16 15:00 23:00 07:00 Intake Total 450 ml 990 ml 450 ml Output Total 1100 ml 1300 ml Balance -650 ml -310 ml 450 ml Exam H EENT examination; supple neck, JVD difficult to see. Pupils are midsize reactive to light. Pharynx is clear. No neck masses, no thyromegaly. Chest examination; clear to auscultation bilaterally. S1-S2 audible, no murmurs. Regular rhythm. Abdomen examination; soft, no organomegaly. Bowel sounds audible. Extremity examination; trace peripheral edema. Pulses 1+ bilaterally. SCRAP CARRIER examination; no focal deficit. Results Result Diagram: 03/17/16 0545 03/17/16 0545 Results 24 hrs Laboratory Tests Test 03/16/16 13:00 03/16/16 13:45 03/16/16 18:57 03/17/16 05:45 Arterial Blood HCO3 20.0 L Arterial Blood Base Excess -3.6 L Arterial Blood Oxygen Saturation 95.4 Zaki Test ACCEPTAB Arterial Blood Gas Puncture Site Right Radial Arterial Blood Carboxyhemoglobin 1.0 Arterial Blood Date Drawn 03/16/2016 1:50:54 PM Arterial Blood Methemoglobin 0.3 Arterial Blood pCO2 (Temp correct) 32.3 L Arterial Blood pH (Temp corrected) 7.409 Arterial Blood pO2 (Temp corrected) 77.5 L Blood Gas A-a O2 Differential 98.5 H Blood Gas Actual Respiration Rate 25 Blood Gas IPAP/EPAP Ratio 12/5 Blood Gas Modality MASK - BIPAP Blood Gas Notified Time 03/16/2016 2:39:32 PM Blood Gas Notified Whom JLD Blood Gas Respiration Rate 14.0 Blood Gas Specimen Source Blood arterial Blood Gas Temperature 37.0 FiO2 30.0 Oxyhemoglobin Percent 94.2 Total Hemoglobin 15.4 Creatine Kinase 153 174 284 H Creatine Kinase Index 0.9 0.9 0.7 Creatinine Kinase MB (Mass) 1.42 1.59 2.01 Troponin I 0.099 0.098 0.120 Alanine Aminotransferase (ALT/SGPT) 27 Albumin 3.7 Albumin/Globulin Ratio 1.19 Alkaline Phosphatase 106 Anion Gap 20 H Aspartate Amino Transf (AST/SGOT) 32 Basophils # 0.0 Basophils % 0.1 Blood Urea Nitrogen 36 #H Calcium Level 8.7 Carbon Dioxide Level 23 Chloride Level 103 Cholesterol Level 146 Cholesterol/HDL Ratio 2.7 Creatinine 1.25 H Direct Bilirubin 0.00 Eosinophils # 0.0 Eosinophils % 0.0 Free Thyroxine 1.09 Globulin 3.10 Glucose Level 132 HDL Cholesterol 54 Hematocrit 43.5 Hemoglobin 14.1 Hemoglobin A1c 7.2 H Indirect Bilirubin 0.4 LDL Cholesterol, Calculated 71 Lymphocytes # 1.4 Lymphocytes % 10.3 L Magnesium Level 1.9 Mean Corpuscular Hemoglobin 27.0 L Mean Corpuscular Hemoglobin Concent 32.4 Mean Corpuscular Volume 83.2 Mean Platelet Volume 11.0 H Monocytes # 1.3 H Monocytes % 9.5 Neutrophils # 11.1 H Neutrophils % 79.7 H Nucleated Red Blood Cells # 0.0 Nucleated Red Blood Cells % 0.0 Phosphorus Level 3.4 Platelet Count 319 Potassium Level 3.8 Red Blood Count 5.23 Red Cell Distribution Width 14.8 H Sodium Level 142 Thyroid Stimulating Hormone (TSH) 1.710 Total Bilirubin 0.4 Total Protein 6.8 Triglycerides Level 106 White Blood Count 13.9 #H Medications Medications Current Medications Alfuzosin HCl (Uroxatral) 10 mg QHS PO Last administered on 03/16/16 21:14; Admin Dose 10 MG; Start 03/16/16 at 21:00 Atorvastatin Calcium (Lipitor) 40 mg QPM PO Last administered on 03/16/16 21:13 ; Admin Dose 40 MG; Start 03/16/16 at 21:00 Clopidogrel Bisulfate (plaVIX) 75 mg DAILY PO Last administered on 03/17/16 09 :14; Admin Dose 75 MG; Start 03/16/16 at 09:00 Lisinopril (Zestril) 40 mg DAILY PO Last administered on 03/17/16 09:16; Admin Dose 40 MG; Start 03/16/16 at 09:00 Oxybutynin Chloride (Oxytrol) 1 patch MoTh@09 TRANSDERM Last administered on 08:23; Admin Dose 1 PATCH; Start 03/16/16 at 09:00 Clonidine (Catapres) 0.1 mg TID PO Last administered on 03/17/16 09:17; Admin Dose 0.1 MG; Start 03/16/16 at 09:00 Non-Formulary Medication 1 ea DAILY PO ; Start 03/16/16 at 09:00; Status UNV Acetaminophen (Tylenol Tab) 650 mg Q6H PRN PO PAIN AND OR ELEVATED TEMP Last administered on 03/16/16 15:55; Admin Dose 650 MG; Start 03/16/16 at 05:00 Heparin Sodium (Porcine) (Heparin (5000 Units/0.5 ml)) 5,000 unit BID SC Last administered on 03/17/16 09:21; Admin Dose 5,000 UNIT; Start 03/16/16 at 09:00 Morphine Sulfate (morphine) 2 mg Q4H PRN IV PAIN; Start 03/16/16 at 05:00 Senna (Senokot) 2 tab DAILY PO ; Start 03/16/16 at 09:00 Magnesium Hydroxide (Milk Of Mag) 30 ml DAILY PRN PO CONSTIPATION; Start at 05:00 Hydralazine HCl (Apresoline) 10 mg Q4H PRN IV ELEVATED BLOOD PRESSURE Last administered on 03/16/16 11:56; Admin Dose 10 MG; Start 03/16/16 at 05:00 Miscellaneous Information (*Order Clarification Bulletin) MEDICATION REQUIRES CLARIFICATION:MYRBE... Q8H XX ; Start 03/16/16 at 08:00 Aspirin (Aspirin) 81 mg DAILY PO Last administered on 03/17/16 09:14; Admin Dose 81 MG; Start 03/16/16 at 14:00 Zolpidem Tartrate (Ambien) 10 mg HS PRN PO INSOMNIA Last administered on 21:13; Admin Dose 10 MG; Start 03/16/16 at 21:00 Diagnostic Test (Pha) (Accucheck) 1 ea 02 XX ; Start 03/18/16 at 02:00 Miscellaneous Information 1 ea NOTE XX ; Start 03/17/16 at 10:00 Glucose (Glutose) 15 gm Q15M PRN PO DECREASED GLUCOSE; Start 03/17/16 at 10:00 Glucose (Glutose) 22.5 gm Q15M PRN PO DECREASED GLUCOSE; Start 03/17/16 at 10: 00 Dextrose (D50w Syringe) 25 ml Q15M PRN IV DECREASED GLUCOSE; Start 03/17/16 at 10:00 Dextrose (D50w Syringe) 50 ml Q15M PRN IV DECREASED GLUCOSE; Start 03/17/16 at 10:00 Glucagon (Glucagen) 1 mg Q15M PRN IM DECREASED GLUCOSE; Start 03/17/16 at 10:00 Glucose (Glutose) 15 gm Q15M PRN BUCCAL DECREASED GLUCOSE; Start 03/17/16 at 10 :00 Famotidine (Pepcid) 20 mg BID PO ; Start 03/17/16 at 11:00 CARLA ROBERTSON Mar 17, 2016 11:07
[2016-03-17] MEDS: FAMOTIDINE 20 MG TAB PO SCH ×2 (11:23→20:54)
[2016-03-17] MEDS: INSULIN ASPART [NOVOLOG] 3 ML PEN SC SCH ×3 (12:56→21:00)
[2016-03-17] MEDS ORDERED: POTASSIUM CHLORIDE (SR) 20 MEQ TAB PO STA (13:35)
--- NOTE | 2016-03-17 13:39 | CONS ---
Date/Time of Note Date/Time of Note DATE: 03/17/16 TIME: 13:37 Assessment/Plan Assessment/Plan Additional Assessment/Plan Acute decompensated systolic and diastolic congestive heart failure Cardiomyopathy with ejection fraction 35% Respiratory failure Left ventricular hypertrophy History of CVA Hypertension Abnormal renal function -Patient with significant improvement in respiratory status after Bumex drip. We will switch Bumex to p.o. from tomorrow. Supplement potassium to maintain above 4.0 and magnesium above 2.0. Will split lisinopril to twice daily dosing secondary to patient complaining of episodes of hypertension in the late afternoon. Start low-dose beta-nabila. Continue antiplatelet and statin therapy. DC planning next 1-2 days. Outpatient ischemic evaluation. Consultation Date/Type/Reason Admit Date/Time Mar 16, 2016 at 03:00 Initial Consult Date 03/16/16 Type of Consultation: cv 24 HR Interval Summary Free Text/Dictation Shortness of breath is much better. Patient off BiPAP. Minimal shortness of breath with exertion. Denies chest pain Exam/Review of Systems Vital Signs Vitals Vital Signs Date Time Temp Pulse Resp B/P Pulse Ox O2 Delivery O2 Flow Rate FiO2 03/17/16 12:30 87 03/17/16 12:26 97.0 18 129/73 98 03/17/16 08:30 Nasal Cannula 3.0 03/17/16 05:41 21 Intake and Output 03/16/16 03/16/16 03/17/16 15:00 23:00 07:00 Intake Total 450 ml 990 ml 450 ml Output Total 1100 ml 1300 ml Balance -650 ml -310 ml 450 ml Exam Eating lunch Constitutional: alert, obese, oriented, well developed Head: normocephalic Neck: supple Respiratory: other (Coarse breath sounds bilaterally, no wheezing) Cardiovascular: other (S1-S2 heard), regular rate and rhythm Gastrointestinal: bowel sounds, non-tender, other (No guarding), soft Extremities: edema Results Result Diagram: 03/17/16 0545 03/17/1645 Results 24 hrs Laboratory Tests Test 03/16/16 13:45 03/16/16 18:57 03/17/16 05:45 03/17/16 11:20 Creatine Kinase 153 174 284 H Creatine Kinase Index 0.9 0.9 0.7 Creatinine Kinase MB (Mass) 1.42 1.59 2.01 Troponin I 0.099 0.098 0.120 Alanine Aminotransferase (ALT/SGPT) 27 Albumin 3.7 Albumin/Globulin Ratio 1.19 Alkaline Phosphatase 106 Anion Gap 20 H Aspartate Amino Transf (AST/SGOT) 32 Basophils # 0.0 Basophils % 0.1 Blood Urea Nitrogen 36 #H Calcium Level 8.7 Carbon Dioxide Level 23 Chloride Level 103 Cholesterol Level 146 Cholesterol/HDL Ratio 2.7 Creatinine 1.25 H Direct Bilirubin 0.00 Eosinophils # 0.0 Eosinophils % 0.0 Free Thyroxine 1.09 Globulin 3.10 Glucose Level 132 HDL Cholesterol 54 Hematocrit 43.5 Hemoglobin 14.1 Hemoglobin A1c 7.2 H Indirect Bilirubin 0.4 LDL Cholesterol, Calculated 71 Lymphocytes # 1.4 Lymphocytes % 10.3 L Magnesium Level 1.9 Mean Corpuscular Hemoglobin 27.0 L Mean Corpuscular Hemoglobin Concent 32.4 Mean Corpuscular Volume 83.2 Mean Platelet Volume 11.0 H Monocytes # 1.3 H Monocytes % 9.5 Neutrophils # 11.1 H Neutrophils % 79.7 H Nucleated Red Blood Cells # 0.0 Nucleated Red Blood Cells % 0.0 Phosphorus Level 3.4 Platelet Count 319 Potassium Level 3.8 Red Blood Count 5.23 Red Cell Distribution Width 14.8 H Sodium Level 142 Thyroid Stimulating Hormone (TSH) 1.710 Total Bilirubin 0.4 Total Protein 6.8 Triglycerides Level 106 White Blood Count 13.9 #H Bedside Glucose 174 Medications Medications Current Medications Alfuzosin HCl (Uroxatral) 10 mg QHS PO Last administered on 03/16/16 21:14; Admin Dose 10 MG; Start 03/16/16 at 21:00 Atorvastatin Calcium (Lipitor) 40 mg QPM PO Last administered on 03/16/16 21:13 ; Admin Dose 40 MG; Start 03/16/16 at 21:00 Clopidogrel Bisulfate (plaVIX) 75 mg DAILY PO Last administered on 03/17/16 09 :14; Admin Dose 75 MG; Start 03/16/16 at 09:00 Lisinopril (Zestril) 40 mg DAILY PO Last administered on 03/17/16 09:16; Admin Dose 40 MG; Start 03/16/16 at 09:00 Oxybutynin Chloride (Oxytrol) 1 patch MoTh@09 TRANSDERM Last administered on 2/ 9/17at 08:23; Admin Dose 1 PATCH; Start 03/16/16 at 09:00 Clonidine (Catapres) 0.1 mg TID PO Last administered on 03/17/16 13:26; Admin Dose 0.1 MG; Start 03/16/16 at 09:00 Non-Formulary Medication 1 ea DAILY PO ; Start 03/16/16 at 09:00; Status UNV Acetaminophen (Tylenol Tab) 650 mg Q6H PRN PO PAIN AND OR ELEVATED TEMP Last administered on 03/16/16 15:55; Admin Dose 650 MG; Start 03/16/16 at 05:00 Heparin Sodium (Porcine) (Heparin (5000 Units/0.5 ml)) 5,000 unit BID SC Last administered on 03/17/16 09:21; Admin Dose 5,000 UNIT; Start 03/16/16 at 09:00 Morphine Sulfate (morphine) 2 mg Q4H PRN IV PAIN; Start 03/16/16 at 05:00 Senna (Senokot) 2 tab DAILY PO ; Start 03/16/16 at 09:00 Magnesium Hydroxide (Milk Of Mag) 30 ml DAILY PRN PO CONSTIPATION; Start at 05:00 Hydralazine HCl (Apresoline) 10 mg Q4H PRN IV ELEVATED BLOOD PRESSURE Last administered on 03/16/16 11:56; Admin Dose 10 MG; Start 03/16/16 at 05:00 Miscellaneous Information (*Order Clarification Bulletin) MEDICATION REQUIRES CLARIFICATION:MYRBE... Q8H XX ; Start 03/16/16 at 08:00 Aspirin (Aspirin) 81 mg DAILY PO Last administered on 03/17/16 09:14; Admin Dose 81 MG; Start 03/16/16 at 14:00 Zolpidem Tartrate (Ambien) 10 mg HS PRN PO INSOMNIA Last administered on 21:13; Admin Dose 10 MG; Start 03/16/16 at 21:00 Diagnostic Test (Pha) (Accucheck) 1 ea 02 XX ; Start 03/18/16 at 02:00 Miscellaneous Information 1 ea NOTE XX ; Start 03/17/16 at 10:00 Glucose (Glutose) 15 gm Q15M PRN PO DECREASED GLUCOSE; Start 03/17/16 at 10:00 Glucose (Glutose) 22.5 gm Q15M PRN PO DECREASED GLUCOSE; Start 03/17/16 at 10: 00 Dextrose (D50w Syringe) 25 ml Q15M PRN IV DECREASED GLUCOSE; Start 03/17/16 at 10:00 Dextrose (D50w Syringe) 50 ml Q15M PRN IV DECREASED GLUCOSE; Start 03/17/16 at 10:00 Glucagon (Glucagen) 1 mg Q15M PRN IM DECREASED GLUCOSE; Start 03/17/16 at 10:00 Glucose (Glutose) 15 gm Q15M PRN BUCCAL DECREASED GLUCOSE; Start 03/17/16 at 10 :00 Famotidine (Pepcid) 20 mg BID PO Last administered on 03/17/16t 11:23; Admin Dose 20 MG; Start 03/17/16 at 11:00 Troy Palumbo DO Mar 17, 2016 13:39
[2016-03-17] MEDS ORDERED: MAGNESIUM SULFATE 2 GM/50 ML 50 ML IVPB ONE (14:00)
[2016-03-17] MEDS: ACETAMINOPHEN 325 MG TAB PO PRN (14:41)
[2016-03-17] MEDS: hydrALAzine 20 MG INJ IV PRN (14:48)
[2016-03-17] MEDS: ATORVASTATIN 40 MG TAB PO SCH (20:52)
[2016-03-17] MEDS: ZOLPIDEM 5 MG TAB PO PRN (20:53)
[2016-03-17] MEDS: ALFUZOSIN (SR) 10 MG TAB PO SCH (20:54)
[2016-03-18] VITALS (9 sets, daily range): BP systolic 152–169; BP diastolic 67–99; PULSE 76–89; RESP 17–20
[2016-03-18] MEDS ORDERED: ACCUCHECK XX SCH (02:00)
[2016-03-18] MEDS: BUMETANIDE 1 MG INJ IV SCH (05:58)
[2016-03-18] MEDS ORDERED: BUMETANIDE 1 MG TAB PO SCH (06:00)
[2016-03-18 06:10] LABS: ADD SCAN DIFF NO
[2016-03-18 06:21] LABS: POTASSIUM 4.2 mmol/L (3.5-5.1)
[2016-03-18 06:24] LABS: CREATININE 1.24 mg/dl (0.61-1.24)
[2016-03-18 06:25] LABS: CALCIUM 8.5 mg/dl (8.4-10.2)
[2016-03-18] MEDS: INSULIN ASPART [NOVOLOG] 3 ML PEN SC SCH ×2 (07:27→11:50)
[2016-03-18 07:33] LABS: PHOSPHORUS 2.5 mg/dl (2.5-4.9)
[2016-03-18 07:34] LABS: MAGNESIUM 2.4 mg/dl (1.7-2.5)
[2016-03-18 07:43] LABS: TROPONIN-I 0.063 ng/ml (0.00-0.12)
[2016-03-18] MEDS: MIRABEGRON XX SCH ×2 (08:00)
[2016-03-18] MEDS: ASPIRIN 81 MG TAB PO SCH (08:47)
[2016-03-18] MEDS: FAMOTIDINE 20 MG TAB PO SCH (08:48)
[2016-03-18] MEDS: SENNA TAB PO SCH (08:48)
[2016-03-18] MEDS: CLOPIDOGREL 75 MG TAB PO SCH (08:48)
[2016-03-18] MEDS: HEPARIN 5,000 UNIT/0.5 ML SYG SC SCH (08:54)
[2016-03-18] MEDS ORDERED: LISINOPRIL 20 MG TAB PO SCH (09:00)
[2016-03-18 10:16] LABS: BASOPHIL # 0.1 10^3/ul (0.0-0.1); BASOPHILS % 0.6 % (0.0-2.0); EOSINOPHILS # 0.2 10^3/ul (0.0-0.5); EOSINOPHILS % 2.4 % (0.0-7.0); HEMATOCRIT 44.6 % (42.0-52.0); HEMOGLOBIN 14.6 g/dl (14.0-18.0); LYMPHOCYTES # 3.2 10^3/ul (0.8-2.9); LYMPHOCYTES % 31.1 % (15.0-51.0); MEAN CORPUSCULAR HEMOGLOBIN 27.2 pg (29.0-33.0); MEAN CORPUSCULAR HGB CONC 32.8 g/dl (32.0-37.0); MEAN PLATELET VOLUME 10.3 fl (7.4-10.4); MONOCYTE # 0.9 10^3/ul (0.3-0.9); MONOCYTES % 8.4 % (0.0-11.0); NEUTROPHIL # 5.9 10^3/ul (1.6-7.5); NEUTROPHILS % 57.5 % (39.0-77.0); PLATELET COUNT 290 10^3/UL (140-440); RED BLOOD COUNT 5.38 10^6/ul (4.70-6.10); RED CELL DISTRIBUTION WIDTH 15.6 % (11.5-14.5); WHITE BLOOD COUNT 10.3 10^3/ul (4.8-10.8)
--- NOTE | 2016-03-18 11:05 | PN ---
Date/Time of Note Date/Time of Note DATE: 03/18/16 TIME: 11:04 Assessment/Plan VTE Prophylaxis VTE Prophylaxis Intervention: SCD's Lines/Catheters [facility] Saline Lock Urinary Cath still in place: No Assessment/Plan Assessment/Plan Acute decompensated systolic and diastolic congestive heart failure Cardiomyopathy with ejection fraction 35% Respiratory failure Left ventricular hypertrophy History of CVA Hypertension Abnormal renal function -Patient with significant improvement in respiratory status after Bumex drip. -po bumex Supplement potassium to maintain above 4.0 and magnesium above 2.0. contitinuie cv meds DC planning next 1-2 days. Outpatient ischemic evaluation. Subjective 24 Hr Interval Summary Free Text/Dictation The patient with no change Exam/Review of Systems Vital Signs Vitals Vital Signs Date Time Temp Pulse Resp B/P Pulse Ox O2 Delivery O2 Flow Rate FiO2 03/18/16 10:21 Nasal Cannula 3.0 03/18/16 08:08 77 03/18/16 07:21 98.5 19 152/85 94 03/17/16 09:00 21 Intake and Output 03/17/16 03/17/16 03/18/16 15:00 23:00 07:00 Intake Total 800 ml 900 ml Output Total 900 ml 1500 ml Balance -100 ml -600 ml Results Result Diagram: 03/18/16 0550 03/18/16 0555 Results 24 hrs Laboratory Tests Test 03/17/16 11:20 03/17/16 16:59 03/17/16 20:50 03/18/16 05:50 Bedside Glucose 174 102 137 Basophils # 0.1 Basophils % 0.6 Blood Morphology Comment Eosinophils # 0.2 Eosinophils % 2.4 Hematocrit 44.6 Hemoglobin 14.6 Lymphocytes # 3.2 H Lymphocytes % 31.1 Mean Corpuscular Hemoglobin 27.2 L Mean Corpuscular Hemoglobin Concent 32.8 Mean Corpuscular Volume 83.0 Mean Platelet Volume 10.3 Monocytes # 0.9 Monocytes % 8.4 Neutrophils # 5.9 Neutrophils % 57.5 Nucleated Red Blood Cells # 0.0 Nucleated Red Blood Cells % 0.0 Platelet Count 290 Red Blood Count 5.38 Red Cell Distribution Width 15.6 H White Blood Count 10.3 # Test 03/18/16 05:55 03/18/16 07:27 Anion Gap 15 Blood Urea Nitrogen 39 H Calcium Level 8.5 Carbon Dioxide Level 25 Chloride Level 107 Creatinine 1.24 Glucose Level 107 Magnesium Level 2.4 Phosphorus Level 2.5 Potassium Level 4.2 Sodium Level 143 Troponin I 0.063 Bedside Glucose 104 Medications Medications Current Medications Alfuzosin HCl (Uroxatral) 10 mg QHS PO Last administered on 03/17/16 20:54; Admin Dose 10 MG; Start 03/16/16 at 21:00 Atorvastatin Calcium (Lipitor) 40 mg QPM PO Last administered on 03/17/16 20: 52; Admin Dose 40 MG; Start 03/16/16 at 21:00 Clopidogrel Bisulfate (plaVIX) 75 mg DAILY PO Last administered on 03/18/16 08 :48; Admin Dose 75 MG; Start 03/16/16 at 09:00 Oxybutynin Chloride (Oxytrol) 1 patch MoTh@09 TRANSDERM Last administered on 08:23; Admin Dose 1 PATCH; Start 03/16/16 at 09:00 Clonidine (Catapres) 0.1 mg TID PO Last administered on 03/18/16 08:47; Admin Dose 0.1 MG; Start 03/16/16 at 09:00 Non-Formulary Medication 1 ea DAILY PO ; Start 03/16/16 at 09:00; Status UNV Acetaminophen (Tylenol Tab) 650 mg Q6H PRN PO PAIN AND OR ELEVATED TEMP Last administered on 03/17/16 14:41; Admin Dose 650 MG; Start 03/16/16 at 05:00 Heparin Sodium (Porcine) (Heparin (5000 Units/0.5 ml)) 5,000 unit BID SC Last administered on 03/18/16 08:54; Admin Dose 5,000 UNIT; Start 03/16/16 at 09:00 Morphine Sulfate (morphine) 2 mg Q4H PRN IV PAIN; Start 03/16/16 at 05:00 Senna (Senokot) 2 tab DAILY PO ; Start 03/16/16 at 09:00 Magnesium Hydroxide (Milk Of Mag) 30 ml DAILY PRN PO CONSTIPATION; Start at 05:00 Hydralazine HCl (Apresoline) 10 mg Q4H PRN IV ELEVATED BLOOD PRESSURE Last administered on 03/17/16 14:48; Admin Dose 10 MG; Start 03/16/16 at 05:00 Miscellaneous Information (*Order Clarification Bulletin) MEDICATION REQUIRES CLARIFICATION:MYRBE... Q8H XX ; Start 03/16/16 at 08:00 Aspirin (Aspirin) 81 mg DAILY PO Last administered on 03/18/16 08:47; Admin Dose 81 MG; Start 03/16/16 at 14:00 Zolpidem Tartrate (Ambien) 10 mg HS PRN PO INSOMNIA Last administered on 20:53; Admin Dose 10 MG; Start 03/16/16 at 21:00 Diagnostic Test (Pha) (Accucheck) 1 ea 02 XX ; Start 03/18/16 at 02:00 Miscellaneous Information 1 ea NOTE XX ; Start 03/17/16 at 10:00 Glucose (Glutose) 15 gm Q15M PRN PO DECREASED GLUCOSE; Start 03/17/16 at 10:00 Glucose (Glutose) 22.5 gm Q15M PRN PO DECREASED GLUCOSE; Start 03/17/16 at 10: 00 Dextrose (D50w Syringe) 25 ml Q15M PRN IV DECREASED GLUCOSE; Start 03/17/16 at 10:00 Dextrose (D50w Syringe) 50 ml Q15M PRN IV DECREASED GLUCOSE; Start 03/17/16 at 10:00 Glucagon (Glucagen) 1 mg Q15M PRN IM DECREASED GLUCOSE; Start 03/17/16 at 10:00 Glucose (Glutose) 15 gm Q15M PRN BUCCAL DECREASED GLUCOSE; Start 03/17/16 at 10 :00 Famotidine (Pepcid) 20 mg BID PO Last administered on 03/18/16 08:48; Admin Dose 20 MG; Start 03/17/16 at 11:00 Lisinopril (Zestril) 20 mg BID PO Last administered on 03/18/16 08:47; Admin Dose 20 MG; Start 03/18/16 at 09:00 Carvedilol (Coreg) 3.125 mg BID PO Last administered on 03/18/16 08:48; Admin Dose 3.125 MG; Start 03/17/16 at 21:00 TRAVIS PATTERSON MD Mar 18, 2016 11:05
--- NOTE | 2016-03-18 12:19 | PDOCDIS ---
Discharge Instructions DIAGNOSIS Discharge Diagnosis: CHF exacerbation. CONDITION Patient Condition: Stable HOME CARE INSTRUCTIONS: Special Diet: Low-cholesterol, carbohydrate controlled OTHER ORDERS: Other Orders: 1. Take medications as per prescription. 2. Take a low-cholesterol, carbohydrate controlled diet. 3. Follow-up with your brushing operator in 2 weeks. 4. Follow-up with your primary care physician 2 weeks. 5. Use nocturnal CPAP. 6. Call 911 or go to the nearest emergency room if you have significant shortness of breath or if you have any chest pain. LYNSEY JESSICA NP Mar 18, 2016 12:19
[2016-03-18] MEDS ORDERED: ASPI81TA3 PO (12:23)
[2016-03-18] MEDS ORDERED: BUME1TAB18 PO (12:23)
[2016-03-18] MEDS ORDERED: LISI20TA11 PO (12:23)
[2016-03-18] MEDS ORDERED: SITA50TA2 PO (12:25)
--- NOTE | 2016-03-18 15:31 | DS ---
DATE OF ADMISSION: 03/16/2016 DATE OF DISCHARGE: 03/18/2016 FINAL DIAGNOSES: 1. Acute on chronic congestive heart failure exacerbation. Systolic and diastolic dysfunction. 2. Ischemic cardiomyopathy with an ejection fraction of 35%. 3. Coronary artery disease. 4. Chronic kidney disease. 5. Obstructive sleep apnea. 6. Type 2 diabetes mellitus. Hemoglobin A1c is 7.2. 7. Essential hypertension. 8. Obesity. 9. History of CVA. CONSULTATIONS: 1. Dr. Seth Kapadia, Pulmonology. 2. Dr. Troy Palumbo, Cardiology. HOSPITAL COURSE: This is a 65-year-old male with a past medical history of a cerebrovascular accident with left-sided weakness, CAD, BPH, gastritis, diabetes , hypertension, dyslipidemia and obstructive sleep apnea, who presented to the emergency department with the chief complaint of shortness of breath and a cough. The patient's symptoms had been going on for a 1-week period and it had been progressively getting worse. The patient denied any chest pain, nausea, vomiting, diaphoresis, fevers, chills, or abdominal pain. In the emergency room , the patient was noticed to have a blood pressure of 215/119. The patient had an oxygen saturation of 87% on room air. The patient's BNP was found to be 1850. The patient's chest x-ray showed pulmonary vascular congestion. In the emergency room, the patient was treated with inhaled bronchodilators, IV Lasix, and a single dose of IV Solu-Medrol. The patient was put on a 100% nonrebreather mask. The patient was later transferred to the telemetry floor for further treatment and evaluation. A cardiology consult and a pulmonary consult was called on this patient. The patient was maintained on supplemental oxygen and inhaled bronchodilators. Pulmonary evaluated the patient and discontinued any IV steroids since pulmonary was suspecting that the patient's acute respiratory failure was most probably secondary to underlying congestive heart failure exacerbation. The patient underwent a 2D echocardiogram that showed cardiomyopathy with an ejection fraction of 35% with systolic and diastolic dysfunction. The patient was maintained on IV Bumex, which was later switched to oral Bumex, with improvement in the patient's symptoms. Hence, the patient' s symptomatology was confirmed to be secondary to congestive heart failure exacerbation for both systolic and diastolic dysfunction. The patient has a history of CAD. The patient was taking Plavix at home. The patient had a single episode of elevated troponins, which then trended down. Hence, the patient was started on dual antiplatelet therapy. The patient was requested to get outpatient ischemic workup. The patient follows up with Dr. Beckford as an outpatient. The patient has underlying chronic kidney disease. The patient's BUN and creatinine were monitored closely. The patient' s renal function remained stable throughout the hospital course. The patient has underlying essential hypertension. The patient's blood pressure was uncontrolled. The patient's blood pressure medications were adjusted multiple times to obtain optimal blood pressure control. The patient was also noted to have type 2 diabetes mellitus with a hemoglobin A1c of 7.2. The patient was noticed to not be taking any diabetic medications at home. The patient was maintained on sliding scale insulin. The patient's random blood glucose levels were stable throughout the hospital course. Upon discharge, the patient will be started on dipeptidyl peptidase-4 inhibitors. The patient is not a good candidate for metformin because of underlying renal failure. The patient has underlying obstructive sleep apnea. The patient was maintained on nocturnal CPAP therapy. The patient had a stable hospital course. The patient was cleared by consultants to be discharged home. The patient denied any complaints at the time of discharge. DISCHARGE DISPOSITION/PLAN: The patient will be discharged home today. The patient was instructed to take medications as per prescription. He was instructed to take a low-cholesterol, carbohydrate-controlled diet. He was instructed to follow up with his heating fixture tender in 2 weeks. He was instructed to follow up with his primary care physician in 2 weeks. He was instructed to use nocturnal CPAP therapy. The patient was instructed to call 911 or go to the nearest emergency room if he has any significant shortness of breath or chest pain. The patient verbalized understanding of his discharge instructions. DISCHARGE PHYSICAL EXAMINATION: GENERAL: This is an obese male sitting in bed in no apparent distress. HEENT: Head normocephalic and atraumatic. Eyes: Anicteric sclerae. Conjunctivae clear. ENT: Nasal septum is midline. Oral mucosa is moist. NECK: Supple. No JVD noticed. RESPIRATORY: Bilaterally diminished breath sounds. No use of accessory muscles of respiration. A few fine rales heard at the bases. CARDIAC: Regular rate and rhythm. No murmurs heard. ABDOMEN: Soft, nontender, and nondistended. Bowel sounds positive in all 4 quadrants. GENITOURINARY: Deferred. EXTREMITIES: No cyanosis, no clubbing. Trace bilateral pedal edema. Peripheral pulses palpable. NEUROLOGIC: The patient is awake, alert, and oriented. Cranial nerves are grossly intact. CONDITION AT DISCHARGE: Stable. DISCHARGE MEDICATIONS: 1. Aspirin 81 mg p.o. daily. 2. Bumex 1 mg p.o. b.i.d. 3. Lisinopril 20 mg p.o. b.i.d. 4. Januvia 50 mg p.o. daily. 5. Alfuzosin 10 mg p.o. at bedtime. 6. Atorvastatin 40 mg p.o. daily. 7. Plavix 75 mg p.o. daily. 8. Ferrous sulfate 140 mg p.o. daily. 9. Gemfibrozil 600 mg p.o. b.i.d. 10. Mirabegron 50 mg p.o. at bedtime. 11. Oxybutynin chloride transdermal Sunday and . 12. Sildenafil citrate 20 mg p.o. daily. PERTINENT LABORATORY AND DIAGNOSTIC DATA: 1. 2D echocardiogram. Ejection fraction of 35%, abnormal diastolic function. Normal right ventricular systolic function. Mild enlargement of the left atrium. Mild enlargement of the right atrium. No significant valvular stenosis or regurgitation seen. Normal pericardium, with no significant pericardial effusion. 2. Renal ultrasound. Nonspecific mild amount of left perirenal fluid is noted of uncertain etiology. No hydronephrosis or obstructive uropathy is seen bilaterally. 3. Chest x-ray. Cardiomegaly. Pulmonary vascular congestion. Shallow inspiration. Mild bibasilar subsegmental atelectasis. 4. Latest CBC: WBC 10.3, hemoglobin 14.6, hematocrit 44.6, platelets 290. 5. Latest BMP: Sodium 143, potassium 4.2, chloride 107, carbon dioxide 28, anion gap 15, BUN 13 and creatinine 1.29, glucose 107, calcium 8.4, phosphorus 2.5, magnesium 2.4. 6. Hemoglobin A1c 7.2. 7. Fasting lipid panel: Triglycerides 106, total cholesterol 146, LDL 71, HDL 54. 8. ABG done on 30% FIO2 via BiPAP mask, pH of 7.479, pCO2 32.3, pO2 77.5, bicarbonate 20.0, oxygen saturation 95.4, base excess -3.6. At this time I would like to thank all the consultants for seeing the patient and providing clinical recommendations. The case and management of this patient was fully discussed with Dr. Karimi. Approximately 40 minutes were spent on coordinating the discharge on this patient. LYNSEY KARIMI MD, AM/FELICITY Conf#: [id number] DID#: [id number] MTDD
== END 2016-03-18 14:36 | disposition home or self-care (01) | DRG 291 ==
LOC: E/R 00:32 → TEL 03:00
PROVIDERS: ADMIT Internal Medicine; ATTEND Internal Medicine
DX: I13.0 Hypertensive heart and chronic kidney disease with heart failure and stage 1 through stage 4 chronic kidney disease, or unspecified chronic kidney disease (principal); I50.43 Acute on chronic combined systolic (congestive) and diastolic (congestive) heart failure; J96.90 Respiratory failure, unspecified, unspecified whether with hypoxia or hypercapnia; J44.1 Chronic obstructive pulmonary disease with (acute) exacerbation; I69.954 Hemiplegia and hemiparesis following unspecified cerebrovascular disease affecting left non-dominant side; J44.0 Chronic obstructive pulmonary disease with (acute) lower respiratory infection; N18.9 Chronic kidney disease, unspecified; Z87.891 Personal history of nicotine dependence; J20.9 Acute bronchitis, unspecified; E78.5 Hyperlipidemia, unspecified; Z98.84 Bariatric surgery status; N40.0 Benign prostatic hyperplasia without lower urinary tract symptoms; I25.10 Atherosclerotic heart disease of native coronary artery without angina pectoris; I25.5 Ischemic cardiomyopathy; G47.33 Obstructive sleep apnea (adult) (pediatric)
CPT/HCPCS: 36415; 36600; 71010; 76775; 80048; 80053; 80061; 82550; 82553; 82803; 82962; 83036; 83735; 83880; 84100; 84439; 84443; 84484; 85025; 85610; 85730; 93005; 93306; 94640; 94644; 94660; 94664; 96374; 96375; J1940; J0360; J1815; J2270; J2930; J3475

== ENCOUNTER 2016-06-11 23:25 | Inpatient (IN) | payer OTHER ==
[~2016-06-11] VITALS: Ht 180.3 cm; Wt 103.5 kg
[~2016-06-11 23:25] MED LIST changes: +ALFU10TA2 PO; +ASPI81TA3 PO; +ATOR80TA75 PO; +BUME1TAB18 PO; +CLOP75TA28 PO; +LISI20TA11 PO; -LISI30TA47 PO; +MIRA25TA PO; -NIFE90TA4 PO; +SILD20TA PO; +SITA50TA2 PO; -[UNRECOGNIZED DRUG - CODE] PO; +[UNRECOGNIZED DRUG - OTHER] TRANSDERM
[2016-06-12 00:16] LABS: ADD SCAN DIFF NO
[2016-06-12 00:19] LABS: BASOPHIL # 0.1 10^3/ul (0.0-0.1); BASOPHILS % 0.8 % (0.0-2.0); EOSINOPHILS # 0.5 10^3/ul (0.0-0.5); HEMATOCRIT 43.1 % (42.0-52.0); HEMOGLOBIN 14.3 g/dl (14.0-18.0); LYMPHOCYTES # 2.7 10^3/ul (0.8-2.9); MEAN CORPUSCULAR HEMOGLOBIN 27.9 pg (29.0-33.0); MEAN CORPUSCULAR HGB CONC 33.2 g/dl (32.0-37.0); MEAN PLATELET VOLUME 11.2 fl (7.4-10.4); MONOCYTE # 0.8 10^3/ul (0.3-0.9); MONOCYTES % 9.2 % (0.0-11.0); NEUTROPHIL # 4.8 10^3/ul (1.6-7.5); NEUTROPHILS % 53.3 % (39.0-77.0); PLATELET COUNT 293 10^3/UL (140-415); RED BLOOD COUNT 5.13 10^6/ul (4.70-6.10); RED CELL DISTRIBUTION WIDTH 15.9 % (11.5-14.5)
[2016-06-12 00:34] LABS: PROTIME 13.2 Sec (12.2-14.2)
[2016-06-12 00:35] LABS: PARTIAL THROMBOPLASTIN TIME 27.3 Sec (25.0-35.0)
[2016-06-12 00:40] LABS: ALANINE AMINOTRANSFERASE 27 IU/L (13-69); ALBUMIN 3.6 g/dl (3.3-4.9); ALBUMIN/GLOBULIN RATIO 1.16; ALKALINE PHOSPHATASE 108 IU/L (42-121); ANION GAP 8 (8-16); ASPARTATE AMINO TRANSFERASE 19 IU/L (15-46); BILIRUBIN,INDIRECT 0.5 mg/dl (0-1.1); BILIRUBIN,TOTAL 0.5 mg/dl (0.2-1.3); BLOOD UREA NITROGEN 34 mg/dl (7-20); CALCIUM 8.7 mg/dl (8.4-10.2); CARBON DIOXIDE 26 mmol/L (21-31); CHLORIDE 108 mmol/L (97-110); CREATININE 1.42 mg/dl (0.61-1.24); GLUCOSE 122 mg/dl (70-220); POTASSIUM 4.1 mmol/L (3.5-5.1); SODIUM 138 mmol/L (135-144); TOTAL PROTEIN 6.7 g/dl (6.1-8.1)
[2016-06-12 00:52] LABS: TROPONIN-I < 0.012 ng/ml (0.00-0.12)
--- NOTE | 2016-06-12 01:19 | ERA ---
ER Documentation Chief Complaint Date/Time DATE: 06/12/16 TIME: 01:18 Chief Complaint blood in stool x 4 hours HPI This is a 66-year-old male with blood in his stool for the past 4 hours. No nausea no vomiting no fevers no chills. No other current complaints. He has had 4 episodes of dark blood in his stool. Patient does have history of gastritis in the past. No chest pain no other current complaints ROS All systems reviewed and are negative except as per history of present illness. Medications Home Meds Active Scripts Sitagliptin* (Januvia*) 50 Mg Tablet, 50 MG PO DAILY, #30 TAB Prov:LYNSEY JESSICA SPIRITUAL MINISTER 03/18/16 Lisinopril* (Lisinopril*) 20 Mg Tablet, 20 MG PO BID for 30 Days, TAB Prov:LYNSEY JESSICA SPIRITUAL MINISTER 03/18/16 Aspirin (Aspirin) 81 Mg Chew, 81 MG PO DAILY for 30 Days, TAB Prov:LYNSEY JESSICA SPIRITUAL MINISTER 03/18/16 Bumetanide* (Bumetanide*) 1 Mg Tablet, 1 MG PO BID DIURETICS for 30 Days, TAB Prov:LYNSEY JESSICA SPIRITUAL MINISTER 03/18/16 Reported Medications Sildenafil Citrate* (Sildenafil Citrate*) 20 Mg Tablet, 20 MG PO DAILY, TAB 03/16/16 Oxybutynin Chloride (Oxytrol) 1 Each Patch.tdsw, 1 EACH TRANSDERM MON & THURS 03/16/16 Mirabegron (Mybetriq) 25 Mg Tab.er.24h, 50 MG PO QHS, TAB 03/16/16 Alfuzosin Hcl* (Alfuzosin Hcl*) 10 Mg Tab.er.24h, 10 MG PO QHS, #30 TAB.SA 03/16/16 Clopidogrel Bisulfate (Clopidogrel) 75 Mg Tablet, 75 MG PO DAILY, #30 TAB 03/16/16 Atorvastatin* (Atorvastatin*) 80 Mg Tablet, 40 MG PO DAILY, #30 TAB 03/16/16 Ferrous Sulfate* (Ferrous Sulfate*) 140 Mg Tablet.er, 140 MG PO DAILY 01/11/13 Gemfibrozil* (Lopid*) 600 Mg Tablet, 600 MG PO BID 10/12/09 Allergies Allergies: Coded Allergies: No Known Allergies (Verified Allergy, Mild, 06/11/16) PMhx/Soc History of Surgery: Yes (Bariatric Surgery - gastric sleeve) Anesthesia Reaction: No Hx Neurological Disorder: No Hx Respiratory Disorders: Yes (COPD) Hx Cardiac Disorders: Yes (STROKE, HTN, HIGH CHOLESTEROL) Hx Psychiatric Problems: No Hx Miscellaneous Medical Probl: Yes (high cholesterol) Hx Alcohol Use: No Hx Substance Use: No Hx Tobacco Use: Yes Smoking Status: Unknown if ever smoked Physical Exam Vitals Vital Signs Date Time Temp Pulse Resp B/P Pulse Ox O2 Delivery O2 Flow Rate FiO2 06/11/16 23:29 97.6 65 20 212/98 97 Physical Exam Const: [] Head: Atraumatic Eyes: Normal Conjunctiva ENT: Normal External Ears, Nose and Mouth. Neck: Full range of motion..~ No meningismus. Resp: Clear to auscultation bilaterally Cardio: Regular rate and rhythm, no murmurs Abd: Soft, non tender, non distended. Normal bowel sounds Skin: No petechiae or rashes Back: No midline or flank tenderness Ext: No cyanosis, or edema Neur: Awake and alert Psych: Normal Mood and Affect Result Diagram: 06/12/16 0005 06/12/16 0005 Results 24 hrs Laboratory Tests Test 06/12/16 00:05 White Blood Count 9.010^3/ul Red Blood Count 5.1310^6/ul Hemoglobin 14.3g/dl Hematocrit 43.1% Mean Corpuscular Volume 84.0fl Mean Corpuscular Hemoglobin 27.9pg Mean Corpuscular Hemoglobin Concent 33.2g/dl Red Cell Distribution Width 15.9% Platelet Count 87401^3/UL Mean Platelet Volume 11.2fl Neutrophils % 53.3% Lymphocytes % 30.0% Monocytes % 9.2% Eosinophils % 6.0% Basophils % 0.8% Nucleated Red Blood Cells % 0.0/100WBC Neutrophils # 4.810^3/ul Lymphocytes # 2.710^3/ul Monocytes # 0.810^3/ul Eosinophils # 0.510^3/ul Basophils # 0.110^3/ul Nucleated Red Blood Cells # 0.010^3/ul Prothrombin Time 13.2Sec Prothrombin Time Ratio 1.0 INR International Normalized Ratio 1.00 Activated Partial Thromboplast Time 27.3Sec Sodium Level 138mmol/L Potassium Level 4.1mmol/L Chloride Level 108mmol/L Carbon Dioxide Level 26mmol/L Anion Gap 8 Blood Urea Nitrogen 34mg/dl Creatinine 1.42mg/dl Glucose Level 122mg/dl Calcium Level 8.7mg/dl Total Bilirubin 0.5mg/dl Direct Bilirubin 0.00mg/dl Indirect Bilirubin 0.5mg/dl Aspartate Amino Transf (AST/SGOT) 19IU/L Alanine Aminotransferase (ALT/SGPT) 27IU/L Alkaline Phosphatase 108IU/L Troponin I < 0.012ng/ml Total Protein 6.7g/dl Albumin 3.6g/dl Globulin 3.10g/dl Albumin/Globulin Ratio 1.16 Lipase 181U/L Procedures/MDM EKG: Rate/Rhythm: Normal Sinus Rhythm QRS, ST, T-waves: No changes consistent w/ acute ischemia Impression: No evidence of ischemia or arrhythmia Chest X-ray 1V Interpreted by me: Soft Tissue: No acute abnormalities Bones: No acute abnormalities Mediastinum/Cardiac Silhouette/Lungs: No acute abnormalities Medical decision-makin-year-old male with lower GI bleed. CT pending at this time. Patient will be admitted to hospitalist for further evaluation and management. Departure Diagnosis: Primary Impression: Lower GI bleed Condition: Serious LUIS ENRIQUE PEREZ June 12, 2016 01:19
--- NOTE | 2016-06-12 01:47 | RADRPT ---
PROCEDURE: CT ABDOMEN/PELVIS WITHOUT CONTRAST CLINICAL INDICATION: 66-year-old male with abdominal pain. TECHNIQUE: The study was performed utilizing a GE [employer] Rockpeed VCT 64-slice CT scanner. Direct axia l sections were obtained through the abdomen and pelvis without the use of intravenous contrast mate rial. Sagittal and coronal reformations were obtained. One or more of the following dose reduction t echniques were utilized: automated exposure control, adjustment of the mA and/or kV according to pat ient's size or use of iterative reconstruction technique. The images were reviewed on a [facility] workst [facility]. CTD/vol = 21.2 mGy; Total Exam DLP = 1463.9 mGy-cm. COMPARISON: CT chest January 11, 2013. FINDINGS: Cardiomegaly is present. Coronary artery calcifications are present. There is minimal bibasilar morris bsegmental atelectasis. There is no evidence for significant pleural effusion. The liver has a nor mal size and contour without focal areas of abnormal density. No intrahepatic nor extrahepatic bilia ry ductal dilatation is seen. The gallbladder contains cholesterol stones without significant wall t hickening or pericholecystic fluid. The pancreas is without areas of abnormal attenuation. The spl een is identified and has a normal size without abnormal density. The adrenal glands are unremarkabl e. The kidneys are mildly atrophic but without abnormal density. No hydroureteronephrosis nor nephro ureterolithiasis is evident. The urinary bladder contains urine. There is again identified evidence for prior gastric surgery. There is leed-xi-wsekklny paraesophageal hiatal hernia. There is retain ed stool within the ascending and transverse colon without obstruction. Multiple diverticula seen within the descending and sigmoid colon without definite surrounding inflammatory changes. The appen kael is visualized and is without abnormal thickening or surrounding inflammatory reaction. There is no significant free fluid. The prostate is not enlarged however there is dense calcification within it. The aortoiliac vessels are calcified and ectatic but without aneurysmal dilatation. Degenerati ve changes are present within the spine. IMPRESSION: 1. Cardiomegaly with coronary artery calcifications. 2. Prior gastric surgery with phzz-pu-kflcypwo paraesophageal hernia as previously visualized. 3. Retained stool without obstruction. 4. Descending and sigmoid colon diverticulosis. 5. No CT evidence for appendicitis. 6. Vascular calcifications. 7. Degenerative changes within the spine. .Jim Nino MD, MD Date Time Electronically viewed and signed by .Jim Nino MD, MD on 06/12/2016 01:47 .Kayla/
--- NOTE | 2016-06-12 01:50 | RADRPT ---
PROCEDURE: CHEST - 1 VIEW CLINICAL INDICATION: 56-year-old male with chest/abdominal pain. TECHNIQUE: A single frontal AP portable view of the chest was performed. The images were reviewed on a PACS workstation. COMPARISON: Chest x-ray March 16, 2016. FINDINGS: The cardiomediastinal silhouette is enlarged. There is a shallow inspiration. There is no evidence for an infiltrate. There is no evidence for congestive heart failure. There is no evidence for pne umothorax. The osseous structures are intact. IMPRESSION: Cardiomegaly. .Jim Nino MD, Date Time Electronically viewed and signed by .Jim Nino MD, on 06/12/2016 01:50 .M/
[2016-06-12] MEDS ORDERED: hydrALAzine 20 MG INJ IV ONE (02:00)
[2016-06-12] MEDS ORDERED: ONDANSETRON 4 MG INJ IV STA (02:05)
[2016-06-12 02:21] VITALS: TEMP 97.6
[2016-06-12 02:54] LABS: URINE BILIRUBIN (Dip) NEGATIVE (NEGATIVE); URINE BLOOD (Dip) NEGATIVE (NEGATIVE); URINE COLOR LT. YELLOW (YELLOW); URINE GLUCOSE (Dip) NEGATIVE (NEGATIVE); URINE KETONES (Dip) NEGATIVE (NEGATIVE); URINE LEUKOCYTE ESTERASE (Dip) NEGATIVE (NEGATIVE); URINE NITRITE (Dip) NEGATIVE (NEGATIVE); URINE UROBILINOGEN (Dip) 0.2 E.U./dL (0.1-1.0)
[2016-06-12 02:55] LABS: ADD UMIC NO; URINE TOTAL PROTEIN (Dip) NEGATIVE (NEGATIVE)
[2016-06-12 03:56] VITALS: Ht 180.3 cm; Wt 103.5 kg
[2016-06-12] MEDS: SOD CHLORIDE 0.9% 1,000 ML IV SCH (04:29)
[2016-06-12 04:30] VITALS: BP 118/74; PULSE 87; RESP 18
[2016-06-12] MEDS ORDERED: LORAZEPAM 2 MG INJ IV ONE (04:30)
[2016-06-12] MEDS ORDERED: hydrALAzine 20 MG INJ IV PRN (04:30)
[2016-06-12] MEDS ORDERED: NACL 0.9% 3 ML SYG IV SCH (04:30)
[2016-06-12] MEDS ORDERED: ONDANSETRON 4 MG INJ IV PRN (04:30)
--- NOTE | 2016-06-12 05:10 | HP ---
Date/Time of Note Date/Time of Note DATE: 06/12/16 TIME: 04:44 Assessment/Plan VTE Prophylaxis VTE Prophylaxis Intervention: contraindicated, SCD's VTE Contraindication Reason: bleeding Lines/Catheters IV Catheter Type (from Nrs): Peripheral IV Central line still needed: No Urinary Cath still in place: No Assessment/Plan Chief Complaint/Hosp Course This is a 66-year-old male being admitted to telemetry floor for: #1 GI bleed: At the current time patient's hemoglobin is stable at 14. We will keep the patient n.p.o. normal saline at 50 cc an hour IV fluids while being careful in the setting of the patient's history of CHF and ejection fraction of 35% according to records from previous admissions. Protonix IV twice daily. Hemoglobin and hematocrit every 6 hours. Consult GI. #2 history of CVA: Patient currently right now is on Plavix and statin. We will hold these current medications at this time especially the Plavix in the setting of GI bleed. Consider restarting meds as per the clinical course.. #3 CHF: Previous records with an ejection fraction of 35%. Patient right now appears to be compensated. We will also consult cardiology of patient's request. #4 Diabetes: We will obtain hemoglobin A1c. Hold sitagliptin at this time, insulin sliding scale. #5 hypertension: We will hold current oral meds, as needed IV hydralazine #6 DVT and GI prophylaxis, currently chemical prophylaxis is contraindicated secondary to GI bleed will put patient on SCDs, Protonix twice daily Further recommendations will be made as per the clinical course Problems: HPI/ROS Admit Date/Time Admit Date/Time June 12, 2016 at 01:53 Hx of Present Illness This is a 66-year-old male with a past medical history of GI bleed, CVA, and CHF who presents to the ED with rectal bleeding. Patient states that around 4 PM yesterday he had to go to the bathroom and ended up having for dark red blood episodes of loose stool. He denies any abdominal pain or any chest pain or any shortness of breath. He denies any vomiting. He does state that in the past he had GI bleed before and at that time he had required approximately 11 units of blood. Patient is also requesting to see his project geophysicist as he has an appointment this week and is afraid he may miss it because of his admission he has questions regarding some of his medications. Allergies: NKDA Medications: See MAR ROS Const: Fatigue Eyes : No pain discharge or redness or change in visual acuity ENT: No pain, sore throat, congestion, congestion, dysphagia or discharge Respiratory: No shortness of breath, cough, sputum, wheezing, or pleuritic pain Cardiovascular: No chest pain, palpitation, PND, or edema GI : As per HPI Genitourinary: No dysuria, hematuria, flank pain , discharge or CVA tenderness Musculoskeletal: No joint pain, back pain, neck pain, restricted range of motion in neck or joints Skin: No rash, bruising or hives Neuro: Residual weakness from his previous CVA in 2012 of the left upper and lower extremity Endocrine: No polyuria, polydipsia, temperature intolerance Psych: No hallucination, depression, anxiety or suicidal ideation Constitutional: improved, no complaints Eyes: no complaints ENT: no complaints Respiratory: no complaints Cardiovascular: no complaints Gastrointestinal: no complaints Genitourinary: no complaints Musculoskeletal: no complaints Skin: no complaints Neurologic: no complaints Endocrine: no complaints Lymphatic: no complaints Psychological: nl mood/affect, no complaints Immunologic: no complaints PMH/Family/Social Past Medical History GI bleed, CVA 2013, CHF, diabetes, htn Past Surgical History Bariatric surgery Family History Significant Family History: hypertension (Mother), other (Alzheimer's in his father) Social History Alcohol Use: occasionally (Quit 30 years ago prior to that he did smoke 3 packs a day for 3 years) Smoking Status: Former smoker Exam/Review of Systems Vital Signs Vitals Vital Signs Date Time Temp Pulse Resp B/P Pulse Ox O2 Delivery O2 Flow Rate FiO2 06/12/16 02:21 97.6 71 17 153/81 100 Room Air Exam Exam General: This is a pleasant obese male in no acute distress The patient is alert oriented -3 lying comfortably in bed. HEENT: Atraumatic, normocephalic. The pupils are equal, round and reactive. Extraocular motor are intact Neck: Supple with full range of motion. No rigidity or meningismus Chest: Nontender Lungs: Clear to auscultation bilaterally no crackles rales or wheezing Heart: Normal S1-S2, Regular rhythm and rate. No murmur, Abdomen: Soft, nontender, nondistended normal bowel sounds. Extremities: Normal to inspection, no edema no cyanosis Neurologic: Normal mental status, cranial nerves II through XII intact. There is some slight difference in the strength of his upper and lower left side extremities compared to the right which is residual from his previous CVA Additional Comments EKG: Rate/Rhythm: Normal Sinus Rhythm QRS, ST, T-waves: No changes consistent w/ acute ischemia Impression: No evidence of ischemia or arrhythmia CT of the abdomen and pelvis IMPRESSION: 1. Cardiomegaly with coronary artery calcifications. 2. Prior gastric surgery with [id number] paraesophageal hernia as previously visualized. 3. Retained stool without obstruction. 4. Descending and sigmoid colon diverticulosis. 5. No CT evidence for appendicitis. 6. Vascular calcifications. 7. Degenerative changes within the spine.' Chest x-ray The cardiomediastinal silhouette is enlarged. There is a shallow inspiration. There is no evidence for an infiltrate. There is no evidence for congestive heart failure. There is no evidence for pneumothorax. The osseous structures are intact. IMPRESSION: Cardiomegaly. Please see dictated reports from radiology for further information for the above imaging studies. Labs Result Diagram: 06/12/16 0005 06/12/16 0005 Medications Medications Current Medications Sodium Chloride (NS) 1,000 ml @ 50 mls/hr Q20H IV Last administered on t 04:29; Admin Dose 50 MLS/HR; Start 06/12/16 at 04:08 Ondansetron HCl (Zofran Inj) 4 mg Q6H PRN IV NAUSEA AND/OR VOMITING; Start 06/12 at 04:30 Pantoprazole (Protonix Iv) 40 mg BID@06,18 IV ; Start 06/12/16 at 09:00 Hydralazine HCl (Apresoline) 10 mg Q6H PRN IV ELEVATED BLOOD PRESSURE; Start at 04:30 DAVID NIELSEN June 12, 2016 04:55
[2016-06-12 07:35] VITALS: BP 136/73; RESP 18
[2016-06-12] MEDS: PANTOPRAZOLE 40 MG INJ IV SCH (08:54)
[2016-06-12 09:22] LABS: ALBUMIN 3.1 g/dl (3.3-4.9); ALBUMIN/GLOBULIN RATIO 1.1; BILIRUBIN,INDIRECT 0.5 mg/dl (0-1.1); BILIRUBIN,TOTAL 0.5 mg/dl (0.2-1.3); CALCIUM 8.3 mg/dl (8.4-10.2); CHOL/HDL RATIO 3.3 RATIO; CREATININE 1.14 mg/dl (0.61-1.24); POTASSIUM 3.9 mmol/L (3.5-5.1); TOTAL PROTEIN 5.9 g/dl (6.1-8.1)
[2016-06-12 10:45] VITALS: BP 132/70
[2016-06-12 11:22] LABS: ADD SCAN DIFF NO
[2016-06-12 11:25] LABS: BASOPHIL # 0.1 10^3/ul (0.0-0.1); BASOPHILS % 0.6 % (0.0-2.0); EOSINOPHILS # 0.3 10^3/ul (0.0-0.5); EOSINOPHILS % 3.5 % (0.0-7.0); HEMATOCRIT 40.3 % (42.0-52.0); HEMOGLOBIN 13.2 g/dl (14.0-18.0); LYMPHOCYTES # 2.2 10^3/ul (0.8-2.9); LYMPHOCYTES % 25.4 % (15.0-51.0); MEAN CORPUSCULAR HEMOGLOBIN 27.6 pg (29.0-33.0); MEAN CORPUSCULAR HGB CONC 32.8 g/dl (32.0-37.0); MEAN CORPUSCULAR VOLUME 84.1 fl (82.0-101.0); MEAN PLATELET VOLUME 11.9 fl (7.4-10.4); MONOCYTE # 0.7 10^3/ul (0.3-0.9); NEUTROPHIL # 5.3 10^3/ul (1.6-7.5); PLATELET COUNT 254 10^3/UL (140-415); RED BLOOD COUNT 4.79 10^6/ul (4.70-6.10); RED CELL DISTRIBUTION WIDTH 16.2 % (11.5-14.5); WHITE BLOOD COUNT 8.5 10^3/ul (4.8-10.8)
[2016-06-12 11:37] LABS: INR 1.1; PROTIME 14.2 Sec (12.2-14.2); PT RATIO 1.1
[2016-06-12] MEDS ORDERED: CLON0.2T5 PO (13:24)
[2016-06-12] MEDS ORDERED: HYDR-3672 PO (13:27)
[2016-06-12 13:29] LABS: HEMOGLOBIN 12.8 g/dl (14.0-18.0)
[2016-06-12] MEDS ORDERED: CARV6.2579 PO (13:29)
[2016-06-12] MEDS ORDERED: ISOS30TA5 PO (13:30)
[2016-06-12] MEDS ORDERED: PARO-37 PO (13:31)
[2016-06-12] MEDS ORDERED: BISACODYL (EC) 5 MG TAB PO ONE (14:00)
--- NOTE | 2016-06-12 14:02 | CONS ---
Date/Time of Note Date/Time of Note DATE: 06/12/16 TIME: 13:40 Assessment/Plan Assessment/Plan Additional Assessment/Plan Assessment * Hematochezia * Lower GI vs upper GI bleed * CT abdomen/pelvis 06/11/2016 * Retained stool without obstruction. Descending and sigmoid colon diverticulosis. * Hypertension * History of Diabetes mellitus * Hx of CHF with EF 35% * Hx of CAD * Obesity * PLan * Bleeding scan today * EGD/colonoscopy 06/13/2016 risks and benefit explained to the patient and agreed with the planned procedure * Monitor H and H q 6 and transfuse 1 unit of PRBC ig hgb lessthan 7.5,2 units of PRBC if hgb less than 7 * PPI Consultation Date/Type/Reason Admit Date/Time June 12, 2016 at 01:53 Date of Consultation: June 12, 2016 Type of Consultation: Gastroenterology Reason for Consultation Lower gi bleed Hx of Present Illness 66 year old male with past medical history of diabetes mellitus,hypertension, obesity congestive heart failure with EF 35%,history of stroke,history of gi bleed last colonoscopy was 2012 finding of diverticulosis,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 Emergency room course revealed a hemoglobin of 14.3 ,CT abdomen/pelvis Cardiomegaly with coronary artery calcifications. Prior gastric surgery with [id number] paraesophageal hernia as previously visualized. Retained stool without obstruction.. Descending and sigmoid colon diverticulosis.. No CT evidence for appendicitis.. Vascular calcifications. Degenerative changes within the spine. On examination on the floor,he had 4 episodes of rectal bleed about 1/2 glass per episode with no abdominal pain,hematemesis ,nausea nor vomiting.Latest hemoglobin is 13.I have explained our plan with the patient and agreed with the planned procedure. Constitutional: improved Eyes: no complaints ENT: no complaints Respiratory: no complaints Cardiovascular: no complaints Gastrointestinal: blood, diarrhea, flatus, passing stool Genitourinary: no complaints Musculoskeletal: no complaints Skin: no complaints Neurologic: no complaints Endocrine: no complaints Lymphatic: no complaints Psychological: nl mood/affect, no complaints Immunologic: no complaints Past Medical History Medical History: congestive heart failure, coronary artery disease, diabetes, GI bleed, high cholesterol, hypertension, other (hx of stroke) Past Surgical History Past Surgical Hx: other (colonoscopy) Family History Significant Family History: no pertinent family hx Social History Alcohol Use: occasionally (Quit 30 years ago prior to that he did smoke 3 packs a day for 3 years) Smoking Status: Former smoker Exam/Review of Systems Vital Signs Vitals Vital Signs Date Time Temp Pulse Resp B/P Pulse Ox O2 Delivery O2 Flow Rate FiO2 06/12/16 10:45 132/70 06/12/16 07:35 98.0 92 18 93 06/12/16 04:30 Room Air Intake and Output 06/11/16 06/11/16 06/12/16 15:00 23:00 07:00 Intake Total 25 ml Output Total 150 ml Balance -125 ml Exam Constitutional: alert, oriented, well developed Psych: nl mood/affect Head: atraumatic, normocephalic Eyes: PERRL, nl conjunctiva, nl sclera ENMT: nl nasal mucosa & septum Neck: non-tender, supple Respiratory: clear to auscultation, normal air movement Cardiovascular: nl pulses, regular rate and rhythm Gastrointestinal: bowel sounds, nl liver, spleen, non-tender, soft, No rebound or guarding, No tender Musculoskeletal: nl extremities to inspection, nl gait and stance Extremities: normal pulses Neurological: TREE SAPPER II-XII intact, nl mental status, nl speech, nl strength Skin: nl turgor, No rash or lesions Lymph: nl lymph nodes Results Result Diagram: 06/12/16 1320 06/12/16 0830 Results 24 hrs Laboratory Tests Test 06/12/16 00:05 06/12/16 02:12 06/12/16 08:30 06/12/16 10:29 White Blood Count 9.0 8.5 Red Blood Count 5.13 4.79 Hemoglobin 14.3 13.2 L Hematocrit 43.1 40.3 L Mean Corpuscular Volume 84.0 84.1 Mean Corpuscular Hemoglobin 27.9 L 27.6 L Mean Corpuscular Hemoglobin Concent 33.2 32.8 Red Cell Distribution Width 15.9 H 16.2 H Platelet Count 293 254 Mean Platelet Volume 11.2 H 11.9 H Neutrophils % 53.3 62.0 Lymphocytes % 30.0 25.4 Monocytes % 9.2 8.0 Eosinophils % 6.0 3.5 Basophils % 0.8 0.6 Nucleated Red Blood Cells % 0.0 0.0 Neutrophils # 4.8 5.3 Lymphocytes # 2.7 2.2 Monocytes # 0.8 0.7 Eosinophils # 0.5 0.3 Basophils # 0.1 0.1 Nucleated Red Blood Cells # 0.0 0.0 Prothrombin Time 13.2 14.2 Prothrombin Time Ratio 1.0 1.1 INR International Normalized Ratio 1.00 1.10 Activated Partial Thromboplast Time 27.3 Sodium Level 138 140 Potassium Level 4.1 3.9 Chloride Level 108 112 H Carbon Dioxide Level 26 22 Anion Gap 8 10 Blood Urea Nitrogen 34 H 33 H Creatinine 1.42 H 1.14 Glucose Level 122 113 Calcium Level 8.7 8.3 L Total Bilirubin 0.5 0.5 Direct Bilirubin 0.00 0.00 Indirect Bilirubin 0.5 0.5 Aspartate Amino Transf (AST/SGOT) 19 18 Alanine Aminotransferase (ALT/SGPT) 27 30 Alkaline Phosphatase 108 98 Troponin I < 0.012 Total Protein 6.7 5.9 L Albumin 3.6 3.1 L Globulin 3.10 2.80 Albumin/Globulin Ratio 1.16 1.10 Lipase 181 Urine Color LT. YELLOW Urine Clarity CLEAR Urine pH 6.0 Urine Specific [place] 1.025 Urine Ketones NEGATIVE Urine Nitrite NEGATIVE Urine Bilirubin NEGATIVE Urine Urobilinogen 0.2 E.U./dL Urine Leukocyte Esterase NEGATIVE Urine Hemoglobin NEGATIVE Urine Glucose NEGATIVE Urine Total Protein NEGATIVE Hemoglobin A1c 6.9 H Triglycerides Level 165 H Cholesterol Level 114 LDL Cholesterol, Calculated 47 HDL Cholesterol 34 Cholesterol/HDL Ratio 3.3 Test 06/12/16 13:20 Hemoglobin 12.8 L Hematocrit 39.0 L Medications Medications Current Medications Sodium Chloride (NS) 1,000 ml @ 50 mls/hr Q20H IV Last administered on 04:29; Admin Dose 50 MLS/HR; Start 06/12/16 at 04:08 Ondansetron HCl (Zofran Inj) 4 mg Q6H PRN IV NAUSEA AND/OR VOMITING; Start 06/12 at 04:30 Pantoprazole (Protonix Iv) 40 mg BID@06,18 IV Last administered on 06/12/16 08: 54; Admin Dose 40 MG; Start 5/8/17 at 09:00 Hydralazine HCl (Apresoline) 10 mg Q6H PRN IV ELEVATED BLOOD PRESSURE; Start at 04:30 Miscellaneous Information Patients own medicat... BID@ XX ; Start 06/12/16 at 10:00 Lorazepam (Ativan) 1 mg Q12H PRN IV anxiety; Start 06/12/16 at 10:00 CARLOS LIND MD June 12, 2016 13:53
--- NOTE | 2016-06-12 14:52 | CONS ---
Date/Time of Note Date/Time of Note DATE: 06/12/16 TIME: 14:44 Assessment/Plan Assessment/Plan Additional Assessment/Plan GI bleed Compensated systolic congestive heart failure Cardiomyopathy with ejection fraction 35% Coronary artery disease Hypertension -Patient currently compensated congestive heart failure with no significant fluid seen on CT of the visualized portions of the lungs. Agree with holding anticoagulation, continue statin therapy. If blood pressure trend remained stable, restart beta-nabila. Consultation Date/Type/Reason Admit Date/Time June 12, 2016 at 01:53 Type of Consultation: cv Reason for Consultation History of congestive heart failure Hx of Present Illness This is a 66-year-old male with past medical history of coronary artery disease , congestive heart failure who presented with loose bloody stools over the past 1-2 days. Patient undergoing GI evaluation. Patient was planned for outpatient cardiology evaluation this week because he was in the hospital, he requested cardiology consultation. He does complain of chronic shortness of breath over the past year. Symptoms can be with activity, at rest. He denies any chest pain, dizziness or lightheadedness. He does complain of abdominal discomfort intermittently over the past couple days. Denies any fevers or chills. 12 point review of systems was performed with all pertinent positives and negatives mentioned above and all else is negative Constitutional: improved Eyes: no complaints ENT: no complaints Respiratory: no complaints Cardiovascular: no complaints Gastrointestinal: blood, diarrhea, flatus, passing stool Genitourinary: no complaints Musculoskeletal: no complaints Skin: no complaints Neurologic: no complaints Endocrine: no complaints Lymphatic: no complaints Psychological: nl mood/affect Immunologic: no complaints Past Medical History Medical History: congestive heart failure, coronary artery disease, diabetes, GI bleed, high cholesterol, hypertension, other (hx of stroke) Past Surgical History Past Surgical Hx: other (colonoscopy) Family History Significant Family History: no pertinent family hx Social History Alcohol Use: occasionally (Quit 30 years ago prior to that he did smoke 3 packs a day for 3 years) Smoking Status: Former smoker Other Social History Lives at home Exam/Review of Systems Vital Signs Vitals Vital Signs Date Time Temp Pulse Resp B/P Pulse Ox O2 Delivery O2 Flow Rate FiO2 06/12/16 10:45 132/70 06/12/16 07:35 98.0 92 18 93 06/12/16 04:30 Room Air Intake and Output 506/11/16 06/12/16 15:00 23:00 07:00 Intake Total 25 ml Output Total 150 ml Balance -125 ml Exam No apparent distress Constitutional: alert, obese, oriented Head: normocephalic Neck: supple Respiratory: other (Coarse breath sounds bilaterally, no wheezing) Cardiovascular: other (S1-S2 heard), regular rate and rhythm Gastrointestinal: bowel sounds, non-tender, other (No guarding), soft Extremities: edema Results Result Diagram: 06/12/16 1320 06/12/16 0830 Results 24 hrs Laboratory Tests Test 06/12/16 00:05 06/12/16 02:12 06/12/16 08:30 06/12/16 10:29 White Blood Count 9.0 8.5 Red Blood Count 5.13 4.79 Hemoglobin 14.3 13.2 L Hematocrit 43.1 40.3 L Mean Corpuscular Volume 84.0 84.1 Mean Corpuscular Hemoglobin 27.9 L 27.6 L Mean Corpuscular Hemoglobin Concent 33.2 32.8 Red Cell Distribution Width 15.9 H 16.2 H Platelet Count 293 254 Mean Platelet Volume 11.2 H 11.9 H Neutrophils % 53.3 62.0 Lymphocytes % 30.0 25.4 Monocytes % 9.2 8.0 Eosinophils % 6.0 3.5 Basophils % 0.8 0.6 Nucleated Red Blood Cells % 0.0 0.0 Neutrophils # 4.8 5.3 Lymphocytes # 2.7 2.2 Monocytes # 0.8 0.7 Eosinophils # 0.5 0.3 Basophils # 0.1 0.1 Nucleated Red Blood Cells # 0.0 0.0 Prothrombin Time 13.2 14.2 Prothrombin Time Ratio 1.0 1.1 INR International Normalized Ratio 1.00 1.10 Activated Partial Thromboplast Time 27.3 Sodium Level 138 140 Potassium Level 4.1 3.9 Chloride Level 108 112 H Carbon Dioxide Level 26 22 Anion Gap 8 10 Blood Urea Nitrogen 34 H 33 H Creatinine 1.42 H 1.14 Glucose Level 122 113 Calcium Level 8.7 8.3 L Total Bilirubin 0.5 0.5 Direct Bilirubin 0.00 0.00 Indirect Bilirubin 0.5 0.5 Aspartate Amino Transf (AST/SGOT) 19 18 Alanine Aminotransferase (ALT/SGPT) 27 30 Alkaline Phosphatase 108 98 Troponin I < 0.012 Total Protein 6.7 5.9 L Albumin 3.6 3.1 L Globulin 3.10 2.80 Albumin/Globulin Ratio 1.16 1.10 Lipase 181 Urine Color LT. YELLOW Urine Clarity CLEAR Urine pH 6.0 Urine Specific [place] 1.025 Urine Ketones NEGATIVE Urine Nitrite NEGATIVE Urine Bilirubin NEGATIVE Urine Urobilinogen 0.2 E.U./dL Urine Leukocyte Esterase NEGATIVE Urine Hemoglobin NEGATIVE Urine Glucose NEGATIVE Urine Total Protein NEGATIVE Hemoglobin A1c 6.9 H Triglycerides Level 165 H Cholesterol Level 114 LDL Cholesterol, Calculated 47 HDL Cholesterol 34 Cholesterol/HDL Ratio 3.3 Test 06/12/16 13:20 Hemoglobin 12.8 L Hematocrit 39.0 L Medications Medications Current Medications Sodium Chloride (NS) 1,000 ml @ 50 mls/hr Q20H IV Last administered on 04:29; Admin Dose 50 MLS/HR; Start 06/12/16 at 04:08 Ondansetron HCl (Zofran Inj) 4 mg Q6H PRN IV NAUSEA AND/OR VOMITING; Start 06/12 at 04:30 Pantoprazole (Protonix Iv) 40 mg BID@06,18 IV Last administered on 06/12/16 08: 54; Admin Dose 40 MG; Start 06/12/16 at 09:00 Hydralazine HCl (Apresoline) 10 mg Q6H PRN IV ELEVATED BLOOD PRESSURE; Start at 04:30 Miscellaneous Information Patients own medicat... BID@10,16 XX ; Start 06/12/16 at 10:00 Lorazepam (Ativan) 1 mg Q12H PRN IV anxiety; Start 06/12/16 at 10:00 Magnesium Citrate (Citroma) 300 ml ONCE ONCE PO ; Start 06/12/16 at 17:30; Stop 06/12/16 at 17:31 Polyethylene Glycol (Miralax) 119 gm ONCE ONCE PO ; Start 06/12/16 at 18:30; Stop 06/12/16 at 18:31 Troy Palumbo DO June 12, 2016 14:52
[2016-06-12] MEDS ORDERED: MAGNESIUM CITRATE 300 ML BTL PO ONE (17:30)
--- NOTE | 2016-06-12 18:06 | RADRPT ---
PROCEDURE: Gastrointestinal bleeding scan CLINICAL INDICATION: 66 year-old patient with blood loss. TECHNIQUE: Following the intravenous injection of 21.1 mCi of Tc-99m labeled red blood cells, mult iple dynamic anterior images of the abdomen were obtained up to 60-minutes post injection. COMPARISON: No prior gastrointestinal bleeding scans. FINDINGS: Abnormal focus of increased uptake is seen in the left lower abdomen, which demonstrate a antegrade and retrograde movement of activity with time along the loops of the large bowel. No other definite abnormal areas of increased activity are seen in the abdomen and pelvis up to 60 m inutes post injection. Physiologic activity is seen in the liver and vessels. IMPRESSION: Scintigraphically detectable gastrointestinal bleeding with the likely origin in the left lower abdo men in the descending colon. A call report was made to Dr. Leo at 06:00 p.m. on June 12, 2016. RPTAT: HH .Donna Wan MD, MD Date Time Electronically viewed and signed by .Donna Wan MD, on 06/12/2016 18:05 .Gayla/
[2016-06-12] MEDS ORDERED: POLYETHYLENE GLYCOL 3350 119 GM POWDER PO ONE (18:30)
[2016-06-12 19:04] LABS: HEMATOCRIT 39.3 % (42.0-52.0); HEMOGLOBIN 12.6 g/dl (14.0-18.0)
[2016-06-12 20:24] VITALS: BP 125/74; RESP 20
[2016-06-12] MEDS: LORAZEPAM 2 MG INJ IV PRN (21:47)
[2016-06-13] VITALS (11 sets, daily range): BP systolic 123–203; BP diastolic 65–104; PULSE 54–82; RESP 9–20
[2016-06-13 01:00] LABS: HEMATOCRIT 35.4 % (42.0-52.0); HEMOGLOBIN 11.3 g/dl (14.0-18.0)
[2016-06-13] MEDS: PANTOPRAZOLE 40 MG INJ IV SCH ×2 (05:31→18:11)
[2016-06-13] MEDS: SOD CHLORIDE 0.9% 1,000 ML IV SCH ×2 (05:31→20:08)
[2016-06-13] MEDS ORDERED: POLYETHYLENE GLYCOL 3350 119 GM POWDER PO ONE (06:00)
[2016-06-13 06:20] LABS: ADD SCAN DIFF NO
[2016-06-13 06:38] LABS: BASOPHILS % 0.6 % (0.0-2.0); EOSINOPHILS % 2.8 % (0.0-7.0); HEMATOCRIT 37.2 % (42.0-52.0); HEMOGLOBIN 11.6 g/dl (14.0-18.0); LYMPHOCYTES % 30.3 % (15.0-51.0); MEAN CORPUSCULAR HEMOGLOBIN 27.1 pg (29.0-33.0); MEAN CORPUSCULAR HGB CONC 31.2 g/dl (32.0-37.0); MEAN CORPUSCULAR VOLUME 86.9 fl (82.0-101.0); MEAN PLATELET VOLUME 11.3 fl (7.4-10.4); NEUTROPHILS % 57.9 % (39.0-77.0); PLATELET COUNT 297 10^3/UL (140-415); RED BLOOD COUNT 4.28 10^6/ul (4.70-6.10); RED CELL DISTRIBUTION WIDTH 16.7 % (11.5-14.5); WHITE BLOOD COUNT 10.1 10^3/ul (4.8-10.8)
[2016-06-13 06:39] LABS: BASOPHIL # 0.1 10^3/ul (0.0-0.1); EOSINOPHILS # 0.3 10^3/ul (0.0-0.5); LYMPHOCYTES # 3.1 10^3/ul (0.8-2.9); MONOCYTE # 0.8 10^3/ul (0.3-0.9); NEUTROPHIL # 5.8 10^3/ul (1.6-7.5)
[2016-06-13 07:29] LABS: CALCIUM 8.1 mg/dl (8.4-10.2); CREATININE 1.6 mg/dl (0.61-1.24); MAGNESIUM 2.2 mg/dl (1.7-2.5); PHOSPHORUS 2.6 mg/dl (2.5-4.9); POTASSIUM 3.9 mmol/L (3.5-5.1)
[2016-06-13] MEDS ORDERED: BISACODYL (EC) 5 MG TAB PO ONE (08:00)
[2016-06-13 12:55] LABS: HEMATOCRIT 38.2 % (42.0-52.0); HEMOGLOBIN 12.1 g/dl (14.0-18.0)
--- NOTE | 2016-06-13 14:59 | GILP ---
DATE OF PROCEDURE: PROCEDURE: Esophagogastroduodenoscopy with biopsies. BRIEF HISTORY AND INDICATION: The patient is being evaluated for gastrointestinal bleeding. PREMEDICATION: Monitored anesthesia care by anesthesiologist. SURGEON: Carlos Leo MD INSTRUMENT USED: Olympus panendoscope. TECHNIQUE: After informed consent, with the patient/relatives understanding the procedure, its indic ations, potential risks and complications, including but not limited to: allergic reaction, bleeding , perforation or infection, and after all pertinent questions were answered to the patients satisfac tion, the patient/relatives signed witnessed informed consent. Following this, premedication was ad ministered slowly IV push under careful cardiovascular and respiratory monitoring with pulse oximetr y, automatic blood pressure and salary manager. Once the sedative effect was achieved the patient was place in the left lateral decubitus, the panendoscope was introduced and advanced under visual contr ol. Careful examination of the upper gastrointestinal tract, both on insertion as well as withdrawal of the instrument disclosed the following findings: ESOPHAGUS: The mucosa of the entire esophagus appears within normal limits. There is no evidence of esophagitis, varices, neoplasm or stricture. No hiatal hernia identified. STOMACH: Upon entrance to the stomach, air was insufflated, the gastric rivera distended normally. There is evidence of a vertical gastroplasty. The mucosa appears unremarkable with the exception of a 1 cm submucosal yellowish mass, very likely lipoma. Biopsies were obtained. PYLORUS: The pylorus appears patent and within normal limits, with no evidence of gastric outlet ob struction. DUODENUM: The duodenal mucosa was carefully examined in the duodenal bulb as well as the second por tion of the duodenum and appears unremarkable with no evidence of duodenitis, ulcer or neoplasm. The instrument was then withdrawn, the patient tolerated the procedure well and was transfer out of the endoscopy suite awake, and in good condition to continue recovery under observation IMPRESSION: 1. Post-vertical gastroplasty. 2. A 1 cm submucosal yellowish mass, likely lipoma. Biopsies obtained. 3. Otherwise, normal esophagogastroduodenoscopy. PLAN: The patient will be continued on present regimen. Further recommendation will depend on noemy ent's clinical course as well as review of biopsies. Dictated By: CARLOS LEO MS/FELICITY Conf#: [id number] DID#: [id number] CC: CARLOS LEO;*EndCC*
[2016-06-13] MEDS ORDERED: hydrALAzine 20 MG INJ IV ONE (15:00)
--- NOTE | 2016-06-13 15:21 | PN ---
Date/Time of Note Date/Time of Note DATE: 06/13/16 TIME: 15:12 Assessment/Plan VTE Prophylaxis VTE Prophylaxis Intervention: SCD's Lines/Catheters IV Catheter Type (from [email or web address] Peripheral IV Urinary Cath still in place: No Assessment/Plan Chief Complaint/Hosp Course #1 GI bleed-now resolved -H&H is stable -Continue Protonix -EGD showed no significant findings -Follow up on GI recommendations #2 History of CVA: -Hold Plavix at this time considering GI bleed #3 CHF: Previous records with an ejection fraction of 35%. Patient right now appears to be compensated -Cardiology consultation appreciated #4 Diabetes -We will see at 6.9, continue current regimen #5 Hypertension-BP currently elevated We will resume home antihypertensives #6 DVT and GI prophylaxis, currently chemical prophylaxis is contraindicated secondary to GI bleed will put patient on SCDs, Protonix twice daily Problems: Subjective 24 Hr Interval Summary Constitutional: no complaints Exam/Review of Systems Vital Signs Vitals Vital Signs Date Time Temp Pulse Resp B/P Pulse Ox O2 Delivery O2 Flow Rate FiO2 06/13/16 14:45 9 203/88 97 06/13/16 14:40 98.3 77 06/13/16 14:20 Simple Mask 10 Intake and Output 06/12/16 06/12/16 06/13/16 15:00 23:00 07:00 Intake Total 890 ml 1900 ml Output Total 1150 ml Balance 890 ml 750 ml Exam Constitutional: alert Respiratory: clear to auscultation Cardiovascular: regular rate and rhythm Gastrointestinal: soft, No distended Musculoskeletal: nl extremities to inspection Results Result Diagram: 06/13/16 1214 06/13/16 0552 Results 24 hrs Laboratory Tests Test 06/12/16 18:30 06/13/16 00:45 06/13/16 05:52 06/13/16 05:55 Hemoglobin 12.6 L 11.3 L 11.6 L Hematocrit 39.3 L 35.4 L 37.2 L Sodium Level 140 Potassium Level 3.9 Chloride Level 114 H Carbon Dioxide Level 23 Anion Gap 7 L Blood Urea Nitrogen 42 H Creatinine 1.60 H Glucose Level 106 Calcium Level 8.1 L Phosphorus Level 2.6 Magnesium Level 2.2 White Blood Count 10.1 Red Blood Count 4.28 L Mean Corpuscular Volume 86.9 Mean Corpuscular Hemoglobin 27.1 L Mean Corpuscular Hemoglobin Concent 31.2 L Red Cell Distribution Width 16.7 H Platelet Count 297 Mean Platelet Volume 11.3 H Neutrophils % 57.9 Lymphocytes % 30.3 Monocytes % 8.0 Eosinophils % 2.8 Basophils % 0.6 Nucleated Red Blood Cells % 0.0 Neutrophils # 5.8 Lymphocytes # 3.1 H Monocytes # 0.8 Eosinophils # 0.3 Basophils # 0.1 Nucleated Red Blood Cells # 0.0 Test 06/13/16 12:14 Hemoglobin 12.1 L Hematocrit 38.2 L Medications Medications Current Medications Sodium Chloride (NS) 1,000 ml @ 50 mls/hr Q20H IV Last administered on 05:31; Admin Dose 50 MLS/HR; Start 06/12/16 at 04:08 Ondansetron HCl (Zofran Inj) 4 mg Q6H PRN IV NAUSEA AND/OR VOMITING; Start 06/12 at 04:30 Pantoprazole (Protonix Iv) 40 mg BID@06,18 IV Last administered on 06/13/16 05: 31; Admin Dose 40 MG; Start 06/12/16 at 09:00 Hydralazine HCl (Apresoline) 10 mg Q6H PRN IV ELEVATED BLOOD PRESSURE; Start at 04:30 Miscellaneous Information Patients own medicat... BID@10,16 XX ; Start 06/12/16 at 10:00 Lorazepam (Ativan) 1 mg Q12H PRN IV anxiety Last administered on 06/12/16 21:47 ; Admin Dose 1 MG; Start 06/12/16 at 10:00 RIDDHI HOU June 13, 2016 15:21
--- NOTE | 2016-06-13 15:36 | GILP ---
DATE OF PROCEDURE: 06/13/2016 PROCEDURE: Colonoscopy to cecum. BRIEF HISTORY AND INDICATIONS: The patient is being evaluated for episode of significant gastrointe stinal bleeding. Bleeding scan was obtained yesterday lit up in the area of the descending colon. The patient has had previous episode of gastrointestinal bleeding, thought to be secondary to divert icular disease. MEDICATION: Monitored anesthesia care by anesthesiologist. PREPARATION: Adequate. INSTRUMENT USED: Olympus colonoscope. TECHNIQUE: After informed consent, with the patient/relatives understanding the procedure, its indic ations potential risks and complications, including but not limited to: allergic reaction, bleeding, perforation, infection, missed lesions and after all pertinent questions were answered to the patie nt's satisfaction, the patient/relatives signed the witnessed informed consent. Following this, premedication was administered slowly IV push by under careful cardiovascular and re spiratory monitoring with pulse oximetry, automatic blood pressure and monitor tech. Once the sedativ e effect was achieved, the patient was placed in the left lateral decubitus position, digital rectal examination was performed. The colonoscope was then introduced and advanced under visual control th roughout all segments of the colon including: the rectum, sigmoid, descending colon, splenic flexure , transverse colon, hepatic flexure, ascending colon and finally reaching the cecum which was clearl y identified by transillumination, finger indentation and the ileocecal valve. Careful examination o f the mucosa of the lower gastrointestinal tract both on insertion as well as withdrawal of the inst rument disclosed the following findings: Rectal Examination: No evidence of perirectal disease, no masses. Colonic Mucosa: The colonic mucosa is remarkable for moderate diverticulosis in left side of the col on. There is no active bleeding or stigmata of recent bleeding identified. The right side of the c olon appears unremarkable. The ileocecal valve was clearly identified and appears unremarkable as w ell effluent from the ileocecal valve was brownish in color. The instrument was withdrawn reexamining the mucosa in detail. Extensive lavage was applied. No ad ditional abnormalities are noted with the exception of a rather large internal hemorrhoids. IMPRESSION: 1. Left-sided diverticulosis. No evidence of active bleeding or identifiable source of bleeding. 2. Large internal hemorrhoids. PLAN: The patient will be continued on present regimen. Diet will be advanced if no further bleedi ng. The patient may be followed as an outpatient. Dictated By: CARLOS LIND MS/FELICITY Conf#: [id number] DID#: [id number]
[2016-06-13] MEDS: ISOSORBIDE MONONITRATE(SR)30 MG TAB PO SCH (16:39)
--- NOTE | 2016-06-13 17:03 | CONS ---
Date/Time of Note Date/Time of Note DATE: 06/13/16 TIME: 17:02 Assessment/Plan Assessment/Plan Additional Assessment/Plan GI bleed Compensated systolic congestive heart failure Cardiomyopathy with ejection fraction 35% Coronary artery disease Hypertension -Patient denies any shortness of breath or chest pain. Blood pressure on the higher end. Would adjust lisinopril to twice daily dosing as well as clonidine. If needed, Coreg dose could be increased. Restart antiplatelet therapy when okay by our GI colleagues. Consultation Date/Type/Reason Admit Date/Time June 12, 2016 at 01:53 Initial Consult Date 06/12/16 Type of Consultation: cv 24 HR Interval Summary Free Text/Dictation Denies shortness of breath, chest pain. Feeling better Exam/Review of Systems Vital Signs Vitals Vital Signs Date Time Temp Pulse Resp B/P Pulse Ox O2 Delivery O2 Flow Rate FiO2 06/13/16 16:16 98.7 79 20 151/65 98 06/13/16 15:15 Room Air 06/13/16 14:20 10 Intake and Output 06/12/16 06/12/16 06/13/16 15:00 23:00 07:00 Intake Total 890 ml 1900 ml Output Total 1150 ml Balance 890 ml 750 ml Exam No apparent distress Constitutional: alert, oriented Head: normocephalic Respiratory: other (Coarse breath sounds bilaterally, no wheezing) Cardiovascular: other (S1-S2 heard), regular rate and rhythm Gastrointestinal: bowel sounds, non-tender, soft Extremities: edema Results Result Diagram: 06/13/16 1214 06/13/16 0552 Results 24 hrs Laboratory Tests Test 06/12/16 18:30 06/13/16 00:45 06/13/16 05:52 06/13/16 05:55 Hemoglobin 12.6 L 11.3 L 11.6 L Hematocrit 39.3 L 35.4 L 37.2 L Sodium Level 140 Potassium Level 3.9 Chloride Level 114 H Carbon Dioxide Level 23 Anion Gap 7 L Blood Urea Nitrogen 42 H Creatinine 1.60 H Glucose Level 106 Calcium Level 8.1 L Phosphorus Level 2.6 Magnesium Level 2.2 White Blood Count 10.1 Red Blood Count 4.28 L Mean Corpuscular Volume 86.9 Mean Corpuscular Hemoglobin 27.1 L Mean Corpuscular Hemoglobin Concent 31.2 L Red Cell Distribution Width 16.7 H Platelet Count 297 Mean Platelet Volume 11.3 H Neutrophils % 57.9 Lymphocytes % 30.3 Monocytes % 8.0 Eosinophils % 2.8 Basophils % 0.6 Nucleated Red Blood Cells % 0.0 Neutrophils # 5.8 Lymphocytes # 3.1 H Monocytes # 0.8 Eosinophils # 0.3 Basophils # 0.1 Nucleated Red Blood Cells # 0.0 Test 06/13/16 12:14 Hemoglobin 12.1 L Hematocrit 38.2 L Medications Medications Current Medications Sodium Chloride (NS) 1,000 ml @ 50 mls/hr Q20H IV Last administered on 05:31; Admin Dose 50 MLS/HR; Start 06/12/16 at 04:08 Ondansetron HCl (Zofran Inj) 4 mg Q6H PRN IV NAUSEA AND/OR VOMITING; Start 06/12 at 04:30 Pantoprazole (Protonix Iv) 40 mg BID@06,18 IV Last administered on 06/13/16 05: 31; Admin Dose 40 MG; Start 06/12/16 at 09:00 Hydralazine HCl (Apresoline) 10 mg Q6H PRN IV ELEVATED BLOOD PRESSURE; Start at 04:30 Miscellaneous Information Patients own medicat... BID@10,16 XX ; Start 06/12/16 at 10:00 Lorazepam (Ativan) 1 mg Q12H PRN IV anxiety Last administered on 06/12/16 21:47 ; Admin Dose 1 MG; Start 06/12/16 at 10:00 Alfuzosin HCl (Uroxatral) 10 mg QHS PO ; Start 06/13/16 at 21:00 Carvedilol (Coreg) 6.25 mg BID PO ; Start 06/13/16 at 21:00 Clonidine (Catapres) 0.2 mg DAILY PO Last administered on 06/13/16 16:39; Admin Dose 0.2 MG; Start 06/13/16 at 15:30 Hydralazine HCl (Apresoline) 50 mg TID PO ; Start 06/13/16 at 21:00 Isosorbide Mononitrate (Imdur) 30 mg DAILY PO Last administered on 06/13/16 16: 39; Admin Dose 30 MG; Start 06/13/16 at 15:30 Lisinopril (Zestril) 20 mg BID PO ; Start 06/13/16 at 21:00 Paroxetine HCl (Paxil) 20 mg DAILY PO ; Start 06/13/16 at 15:30 Sildenafil Citrate (Revatio) 20 mg DAILY PO ; Start 06/14/16 at 09:00 Troy Palumbo DO June 13, 2016 17:03
[2016-06-13] MEDS ORDERED: hydrALAzine 20 MG INJ IV PRN (17:30)
[2016-06-13] MEDS: PAROXETINE 20 MG TAB PO SCH (18:11)
[2016-06-13 18:35] LABS: HEMATOCRIT 30.5 % (42.0-52.0); HEMOGLOBIN 9.9 g/dl (14.0-18.0)
[2016-06-13] MEDS ORDERED: LISINOPRIL 20 MG TAB PO SCH (21:00)
[2016-06-13] MEDS ORDERED: ALFUZOSIN (SR) 10 MG TAB PO SCH (21:00)
[2016-06-13] MEDS: LORAZEPAM 2 MG INJ IV PRN (21:17)
[2016-06-13] MEDS: ATORVASTATIN 40 MG TAB PO SCH (22:00)
[2016-06-14] MEDS: PANTOPRAZOLE 40 MG INJ IV SCH ×2 (06:15→17:26)
[2016-06-14 06:23] LABS: ADD SCAN DIFF NO
[2016-06-14 06:30] LABS: BASOPHILS % 0.5 % (0.0-2.0); EOSINOPHILS # 0.5 10^3/ul (0.0-0.5); EOSINOPHILS % 6.1 % (0.0-7.0); HEMATOCRIT 28.5 % (42.0-52.0); HEMOGLOBIN 9.2 g/dl (14.0-18.0); LYMPHOCYTES # 2.5 10^3/ul (0.8-2.9); LYMPHOCYTES % 30.9 % (15.0-51.0); MEAN CORPUSCULAR HEMOGLOBIN 28.4 pg (29.0-33.0); MEAN CORPUSCULAR HGB CONC 32.3 g/dl (32.0-37.0); MEAN PLATELET VOLUME 11.8 fl (7.4-10.4); MONOCYTE # 0.8 10^3/ul (0.3-0.9); MONOCYTES % 9.9 % (0.0-11.0); NEUTROPHIL # 4.2 10^3/ul (1.6-7.5); PLATELET COUNT 234 10^3/UL (140-415); RED BLOOD COUNT 3.24 10^6/ul (4.70-6.10); RED CELL DISTRIBUTION WIDTH 17.2 % (11.5-14.5); WHITE BLOOD COUNT 8.2 10^3/ul (4.8-10.8)
[2016-06-14 06:54] LABS: CALCIUM 7.4 mg/dl (8.4-10.2); CREATININE 1.34 mg/dl (0.61-1.24); POTASSIUM 3.9 mmol/L (3.5-5.1)
[2016-06-14 07:35] VITALS: BP 143/84; RESP 18
[2016-06-14] MEDS: ATORVASTATIN 40 MG TAB PO SCH (08:59)
[2016-06-14] MEDS: LISINOPRIL 10 MG TAB PO SCH ×2 (09:00→20:48)
[2016-06-14] MEDS: ISOSORBIDE MONONITRATE(SR)30 MG TAB PO SCH (09:00)
[2016-06-14] MEDS: PAROXETINE 20 MG TAB PO SCH (09:00)
[2016-06-14] MEDS: SILDENAFIL 20 MG TAB PO SCH (09:00)
[2016-06-14] MEDS: SOD CHLORIDE 0.9% 1,000 ML IV SCH (09:01)
[2016-06-14] MEDS ORDERED: SOD CHLORIDE 0.9% 250 ML IV* ONE (12:27)
--- NOTE | 2016-06-14 13:05 | PN ---
Date/Time of Note Date/Time of Note DATE: 06/14/16 TIME: 12:57 Assessment/Plan VTE Prophylaxis VTE Prophylaxis Intervention: SCD's Lines/Catheters IV [facility] Type (from [facility] Peripheral IV Urinary Cath still in place: No Assessment/Plan Assessment/Plan Assessment * Hematochezia * Lower GI bleed * CT abdomen/pelvis 06/11/2016 * Retained stool without obstruction. Descending and sigmoid colon diverticulosis. Colonoscopy 06/13/2016 Left-sided diverticulosis. No evidence of active bleeding or identifiable source of bleeding. Large internal hemorrhoids. * Hypertension * History of Diabetes mellitus * Hx of CHF with EF 35% * Hx of CAD * Obesity * PLan * Monitor H and H q 6 and transfuse 1 unit of PRBC if hgb less than 7.5,2 units of PRBC if hgb less than 7 * PPI Subjective 24 Hr Interval Summary Free Text/Dictation * Course reviewed with RN * Patient seen and examined * episode of hematochezia x2 minimal in amount * latest hemoglobin 9.3 * Colonoscopy 06/13/2016 Left-sided diverticulosis. No evidence of active bleeding or identifiable source of bleeding. Large internal hemorrhoids. * EGD 06/13/2016 Post-vertical gastroplasty. A 1 cm submucosal yellowish mass, likely lipoma. Biopsies obtained. Otherwise, normal esophagogastroduodenoscopy Exam/Review of Systems Vital Signs Vitals Vital Signs Date Time Temp Pulse Resp B/P Pulse Ox O2 Delivery O2 Flow Rate FiO2 06/14/16 07:35 97.6 82 18 143/84 96 06/13/16 15:15 Room Air 06/13/16 14:20 10 Intake and Output 06/13/16 06/13/16 06/14/16 15:00 23:00 07:00 Intake Total 550 ml 1400 ml Output Total 750 ml Balance 550 ml 650 ml Exam Constitutional: alert, oriented Head: normocephalic Neck: non-tender, supple Respiratory: clear to auscultation, normal air movement Cardiovascular: nl pulses, regular rate and rhythm Gastrointestinal: nl liver, spleen, non-tender, soft Musculoskeletal: nl extremities to inspection Extremities: normal pulses Neurological: nl mental status, nl speech Skin: nl turgor, No rash or lesions Results Result Diagram: 06/14/16 0417 06/14/16 0417 Results 24 hrs Laboratory Tests Test 06/13/16 18:05 06/14/16 04:17 Hemoglobin 9.9 L 9.2 L Hematocrit 30.5 #L 28.5 L White Blood Count 8.2 Red Blood Count 3.24 #L Mean Corpuscular Volume 88.0 Mean Corpuscular Hemoglobin 28.4 L Mean Corpuscular Hemoglobin Concent 32.3 Red Cell Distribution Width 17.2 H Platelet Count 234 # Mean Platelet Volume 11.8 H Neutrophils % 52.0 Lymphocytes % 30.9 Monocytes % 9.9 Eosinophils % 6.1 Basophils % 0.5 Nucleated Red Blood Cells % 0.0 Neutrophils # 4.2 Lymphocytes # 2.5 Monocytes # 0.8 Eosinophils # 0.5 Basophils # 0.0 Nucleated Red Blood Cells # 0.0 Sodium Level 140 Potassium Level 3.9 Chloride Level 114 H Carbon Dioxide Level 22 Anion Gap 8 Blood Urea Nitrogen 34 H Creatinine 1.34 H Glucose Level 100 Calcium Level 7.4 L Medications Medications Current Medications Sodium Chloride (NS) 1,000 ml @ 50 mls/hr Q20H IV Last administered on 09:01; Admin Dose 50 MLS/HR; Start 06/12/16 at 04:08 Ondansetron HCl (Zofran Inj) 4 mg Q6H PRN IV NAUSEA AND/OR VOMITING; Start 06/12 at 04:30 Pantoprazole (Protonix Iv) 40 mg BID@06,18 IV Last administered on 06/14/16 06 :15; Admin Dose 40 MG; Start 06/12/16 at 09:00 Hydralazine HCl (Apresoline) 10 mg Q6H PRN IV ELEVATED BLOOD PRESSURE; Start at 04:30 Miscellaneous Information Patients own medicat... BID@16 XX ; Start 06/12/16 at 10:00 Lorazepam (Ativan) 1 mg Q12H PRN IV anxiety Last administered on 06/13/16 21:17 ; Admin Dose 1 MG; Start 06/12/16 at 10:00 Alfuzosin HCl (Uroxatral) 10 mg QHS PO ; Start 06/13/16 at 21:00 Carvedilol (Coreg) 6.25 mg BID PO Last administered on 06/14/16 09:00; Admin Dose 6.25 MG; Start 06/13/16 at 21:00 Hydralazine HCl (Apresoline) 50 mg TID PO Last administered on 06/14/16 12:07 ; Admin Dose 50 MG; Start 06/13/16 at 21:00 Isosorbide Mononitrate (Imdur) 30 mg DAILY PO Last administered on 06/14/16 09 :00; Admin Dose 30 MG; Start 06/13/16 at 15:30 Paroxetine HCl (Paxil) 20 mg DAILY PO Last administered on 06/14/16 09:00; Admin Dose 20 MG; Start 06/13/16 at 15:30 Sildenafil Citrate (Revatio) 20 mg DAILY PO Last administered on 06/14/16 09: 00; Admin Dose 20 MG; Start 06/14/16 at 09:00 Clonidine (Catapres) 0.1 mg BID PO Last administered on 06/14/16 09:00; Admin Dose 0.1 MG; Start 06/13/16 at 21:00 Lisinopril (Zestril) 10 mg BID PO Last administered on 06/14/16 09:00; Admin Dose 10 MG; Start 06/14/16 at 09:00 Hydralazine HCl (Apresoline) 10 mg Q4H PRN IV SBP>170; Start 06/13/16 at 17:30 Atorvastatin Calcium (Lipitor) 40 mg DAILY PO Last administered on 06/14/16 08 :59; Admin Dose 40 MG; Start 06/13/16 at 22:00 CARLOS LIND MD June 14, 2016 13:05 Hydralazine HCl (Apresoline) 50 mg TID PO Last administered on 06/14/16 12:07 ; Admin Dose 50 MG; Start 06/13/16 at 21:00 Isosorbide Mononitrate (Imdur) 30 mg DAILY PO Last administered on 06/14/16 09 :00; Admin Dose 30 MG; Start 06/13/16 at 15:30 Paroxetine HCl (Paxil) 20 mg DAILY PO Last administered on 06/14/16 09:00; Admin Dose 20 MG; Start 06/13/16 at 15:30 Sildenafil Citrate (Revatio) 20 mg DAILY PO Last administered on 06/14/16 09: 00; Admin Dose 20 MG; Start 5/10/17 at 09:00 Clonidine (Catapres) 0.1 mg BID PO Last administered on 06/14/16 09:00; Admin Dose 0.1 MG; Start 06/13/16 at 21:00 Lisinopril (Zestril) 10 mg BID PO Last administered on 06/14/16 09:00; Admin Dose 10 MG; Start 06/14/16 at 09:00 Hydralazine HCl (Apresoline) 10 mg Q4H PRN IV SBP>170; Start 06/13/16 at 17:30 Atorvastatin Calcium (Lipitor) 40 mg DAILY PO Last administered on 06/14/16 08 :59; Admin Dose 40 MG; Start 06/13/16 at 22:00 CARLOS LIND MD June 14, 2016 13:05
--- NOTE | 2016-06-14 16:14 | PN ---
Date/Time of Note Date/Time of Note DATE: 06/14/16 TIME: 16:10 Assessment/Plan VTE Prophylaxis VTE Prophylaxis Intervention: SCD's Lines/Catheters IV Catheter Type (from [facility] [place]): Peripheral IV Urinary Cath still in place: No Assessment/Plan Chief Complaint/Hosp Course #1 Anemia secondary to GI bleed from large internal hemorrhoids -Transfuse 1 unit of packed red blood cells today secondary to drop in hemoglobin -Bleeding has resumed once again today -Have started hemorrhoid cream and Psyllium -H&H is stable -Continue Protonix -EGD showed no significant findings -Colonoscopy showed diverticulosis and large internal hemorrhoids -Patient will need an outpatient follow-up with surgery regarding the internal hemorrhoids, have already spoken to [employer] [facility] [employer] regarding this issue #2 History of CVA: -Hold Plavix at this time considering GI bleed #3 CHF: Previous records with an ejection fraction of 35%. Patient right now appears to be compensated -Cardiology consultation appreciated #4 Diabetes -We will see at 6.9, continue current regimen #5 Hypertension-BP currently elevated We will resume home antihypertensives #6 DVT and GI prophylaxis, currently chemical prophylaxis is contraindicated secondary to GI bleed will put patient on SCDs, Protonix twice daily Problems: Subjective 24 Hr Interval Summary Gastrointestinal: blood Exam/Review of Systems Vital Signs Vitals Vital Signs Date Time Temp Pulse Resp B/P Pulse Ox O2 Delivery O2 Flow Rate FiO2 06/14/16 07:35 97.6 82 18 143/84 96 06/13/16 15:15 Room Air 06/13/16 14:20 10 Intake and Output 06/13/16 06/13/16 06/14/16 15:00 23:00 07:00 Intake Total 550 ml 1400 ml Output Total 750 ml Balance 550 ml 650 ml Exam Constitutional: alert Respiratory: clear to auscultation Cardiovascular: regular rate and rhythm Gastrointestinal: soft, No distended Musculoskeletal: nl extremities to inspection Results Result Diagram: 06/14/16 0417 06/14/16 0417 Results 24 hrs Laboratory Tests Test 06/13/16 18:05 06/14/16 04:17 Hemoglobin 9.9 L 9.2 L Hematocrit 30.5 #L 28.5 L White Blood Count 8.2 Red Blood Count 3.24 #L Mean Corpuscular Volume 88.0 Mean Corpuscular Hemoglobin 28.4 L Mean Corpuscular Hemoglobin Concent 32.3 Red Cell Distribution Width 17.2 H Platelet Count 234 # Mean Platelet Volume 11.8 H Neutrophils % 52.0 Lymphocytes % 30.9 Monocytes % 9.9 Eosinophils % 6.1 Basophils % 0.5 Nucleated Red Blood Cells % 0.0 Neutrophils # 4.2 Lymphocytes # 2.5 Monocytes # 0.8 Eosinophils # 0.5 Basophils # 0.0 Nucleated Red Blood Cells # 0.0 Sodium Level 140 Potassium Level 3.9 Chloride Level 114 H Carbon Dioxide Level 22 Anion Gap 8 Blood Urea Nitrogen 34 H Creatinine 1.34 H Glucose Level 100 Calcium Level 7.4 L Medications Medications Current Medications Sodium Chloride (NS) 1,000 ml @ 50 mls/hr Q20H IV Last administered on 09:01; Admin Dose 50 MLS/HR; Start 06/12/16 at 04:08 Ondansetron HCl (Zofran Inj) 4 mg Q6H PRN IV NAUSEA AND/OR VOMITING; Start 06/12 at 04:30 Pantoprazole (Protonix Iv) 40 mg BID@06,18 IV Last administered on 06/14/16 06 :15; Admin Dose 40 MG; Start 06/12/16 at 09:00 Hydralazine HCl (Apresoline) 10 mg Q6H PRN IV ELEVATED BLOOD PRESSURE; Start at 04:30 Miscellaneous Information Patients own medicat... BID@10,16 XX ; Start 06/12/16 at 10:00 Lorazepam (Ativan) 1 mg Q12H PRN IV anxiety Last administered on 06/13/16 21:17 ; Admin Dose 1 MG; Start 06/12/16 at 10:00 Carvedilol (Coreg) 6.25 mg BID PO Last administered on 06/14/16 09:00; Admin Dose 6.25 MG; Start 06/13/16 at 21:00 Hydralazine HCl (Apresoline) 50 mg TID PO Last administered on 06/14/16 12:07 ; Admin Dose 50 MG; Start 06/13/16 at 21:00 Isosorbide Mononitrate (Imdur) 30 mg DAILY PO Last administered on 06/14/16 09 :00; Admin Dose 30 MG; Start 06/13/16 at 15:30 Paroxetine HCl (Paxil) 20 mg DAILY PO Last administered on 06/14/16 09:00; Admin Dose 20 MG; Start 06/13/16 at 15:30 Sildenafil Citrate (Revatio) 20 mg DAILY PO Last administered on 06/14/16 09: 00; Admin Dose 20 MG; Start 06/14/16 at 09:00 Clonidine (Catapres) 0.1 mg BID PO Last administered on 06/14/16 09:00; Admin Dose 0.1 MG; Start 06/13/16 at 21:00 Lisinopril (Zestril) 10 mg BID PO Last administered on 06/14/16 09:00; Admin Dose 10 MG; Start 06/14/16 at 09:00 Hydralazine HCl (Apresoline) 10 mg Q4H PRN IV SBP>170; Start 06/13/16 at 17:30 Atorvastatin Calcium (Lipitor) 40 mg DAILY PO Last administered on 06/14/16 08 :59; Admin Dose 40 MG; Start 06/13/16 at 22:00 Patient Own Medication 1 ea QHS PO ; Start 06/14/16 at 21:00 RIDDHI HOU June 14, 2016 16:14
[2016-06-14] MEDS ORDERED: SKIN RESP FACT/SHARK/PH MERCU SUPP PR ONE (17:00)
[2016-06-14] MEDS: PSYLLIUM (SUGAR FREE) PACKET PO SCH (17:30)
--- NOTE | 2016-06-14 19:05 | CONS ---
Date/Time of Note Date/Time of Note DATE: 06/14/16 TIME: 19:04 Assessment/Plan Assessment/Plan Additional Assessment/Plan GI bleed Compensated systolic congestive heart failure Cardiomyopathy with ejection fraction 35% Coronary artery disease Hypertension -Patient denies any shortness of breath or chest pain. Will increase dose of Coreg. Restart antiplatelet therapy when okay by our GI colleagues. Consultation Date/Type/Reason Admit Date/Time June 12, 2016 at 01:53 Initial Consult Date 06/12/16 Type of Consultation: cv 24 HR Interval Summary Free Text/Dictation Denies shortness of breath, chest pain, palpitations Exam/Review of Systems Vital Signs Vitals Vital Signs Date Time Temp Pulse Resp B/P Pulse Ox O2 Delivery O2 Flow Rate FiO2 06/14/16 07:35 97.6 82 18 143/84 96 06/13/16 15:15 Room Air 06/13/16 14:20 10 Intake and Output 06/13/16 06/13/16 06/14/16 15:00 23:00 07:00 Intake Total 550 ml 1400 ml Output Total 750 ml Balance 550 ml 650 ml Exam No apparent distress Constitutional: alert, oriented Head: normocephalic Neck: supple Respiratory: other (Coarse breath sounds bilaterally, no wheezing) Cardiovascular: other (S1-S2 heard), regular rate and rhythm Gastrointestinal: bowel sounds, non-tender, soft Extremities: edema (Trace) Results Result Diagram: 06/14/16 0417 06/14/16 0417 Results 24 hrs Laboratory Tests Test 06/14/16 04:17 White Blood Count 8.2 Red Blood Count 3.24 #L Hemoglobin 9.2 L Hematocrit 28.5 L Mean Corpuscular Volume 88.0 Mean Corpuscular Hemoglobin 28.4 L Mean Corpuscular Hemoglobin Concent 32.3 Red Cell Distribution Width 17.2 H Platelet Count 234 # Mean Platelet Volume 11.8 H Neutrophils % 52.0 Lymphocytes % 30.9 Monocytes % 9.9 Eosinophils % 6.1 Basophils % 0.5 Nucleated Red Blood Cells % 0.0 Neutrophils # 4.2 Lymphocytes # 2.5 Monocytes # 0.8 Eosinophils # 0.5 Basophils # 0.0 Nucleated Red Blood Cells # 0.0 Sodium Level 140 Potassium Level 3.9 Chloride Level 114 H Carbon Dioxide Level 22 Anion Gap 8 Blood Urea Nitrogen 34 H Creatinine 1.34 H Glucose Level 100 Calcium Level 7.4 L Medications Medications Current Medications Ondansetron HCl (Zofran Inj) 4 mg Q6H PRN IV NAUSEA AND/OR VOMITING; Start 06/12 at 04:30 Pantoprazole (Protonix Iv) 40 mg BID@06,18 IV Last administered on 06/14/16 17 :26; Admin Dose 40 MG; Start 06/12/16 at 09:00 Miscellaneous Information Patients own medicat... BID@10,16 XX ; Start 06/12/16 at 10:00 Lorazepam (Ativan) 1 mg Q12H PRN IV anxiety Last administered on 06/13/16 21:17 ; Admin Dose 1 MG; Start 06/12/16 at 10:00 Carvedilol (Coreg) 6.25 mg BID PO Last administered on 06/14/16 09:00; Admin Dose 6.25 MG; Start 06/13/16 at 21:00 Hydralazine HCl (Apresoline) 50 mg TID PO Last administered on 06/14/16 12:07 ; Admin Dose 50 MG; Start 06/13/16 at 21:00 Isosorbide Mononitrate (Imdur) 30 mg DAILY PO Last administered on 06/14/16 09 :00; Admin Dose 30 MG; Start 06/13/16 at 15:30 Paroxetine HCl (Paxil) 20 mg DAILY PO Last administered on 06/14/16 09:00; Admin Dose 20 MG; Start 06/13/16 at 15:30 Sildenafil Citrate (Revatio) 20 mg DAILY PO Last administered on 06/14/16 09: 00; Admin Dose 20 MG; Start 06/14/16 at 09:00 Clonidine (Catapres) 0.1 mg BID PO Last administered on 06/14/16 09:00; Admin Dose 0.1 MG; Start 06/13/16 at 21:00 Lisinopril (Zestril) 10 mg BID PO Last administered on 06/14/16 09:00; Admin Dose 10 MG; Start 06/14/16 at 09:00 Hydralazine HCl (Apresoline) 10 mg Q4H PRN IV SBP>170; Start 06/13/16 at 17:30 Atorvastatin Calcium (Lipitor) 40 mg DAILY PO Last administered on 06/14/16 08 :59; Admin Dose 40 MG; Start 06/13/16 at 22:00 Patient Own Medication 1 ea QHS PO ; Start 06/14/16 at 21:00 Psyllium Hydrophilic Mucilloid (Metamucil (Sugar Free)) 1 pkt DAILY PO Last administered on 06/14/16 17:30; Admin Dose 1 PKT; Start 06/14/16 at 17:00 Troy Palumbo DO June 14, 2016 19:05
[2016-06-14] MEDS ORDERED: (Nursing Note) XX SCH (21:00)
[2016-06-14] MEDS ORDERED: ALFUZOSIN (SR) 10 MG TAB PO SCH (21:00)
[2016-06-14] MEDS ORDERED: ALFUZOSIN 10 MG PO SCH (21:00)
[2016-06-14 21:05] VITALS: BP 150/65; RESP 18
[2016-06-14] MEDS: LORAZEPAM 2 MG INJ IV PRN (21:24)
[2016-06-15] MEDS: PANTOPRAZOLE 40 MG INJ IV SCH (06:03)
[2016-06-15 06:31] LABS: ADD SCAN DIFF NO
[2016-06-15 06:55] LABS: BASOPHIL # 0.1 10^3/ul (0.0-0.1); BASOPHILS % 0.7 % (0.0-2.0); EOSINOPHILS # 0.7 10^3/ul (0.0-0.5); EOSINOPHILS % 8.8 % (0.0-7.0); HEMATOCRIT 27.7 % (42.0-52.0); HEMOGLOBIN 9.1 g/dl (14.0-18.0); LYMPHOCYTES # 2.4 10^3/ul (0.8-2.9); MEAN CORPUSCULAR HEMOGLOBIN 28.6 pg (29.0-33.0); MEAN CORPUSCULAR HGB CONC 32.9 g/dl (32.0-37.0); MEAN CORPUSCULAR VOLUME 87.1 fl (82.0-101.0); MEAN PLATELET VOLUME 11.6 fl (7.4-10.4); MONOCYTE # 0.8 10^3/ul (0.3-0.9); MONOCYTES % 9.9 % (0.0-11.0); NEUTROPHILS % 49.2 % (39.0-77.0); PLATELET COUNT 205 10^3/UL (140-415); POTASSIUM 3.5 mmol/L (3.5-5.1); RED BLOOD COUNT 3.18 10^6/ul (4.70-6.10); RED CELL DISTRIBUTION WIDTH 17.1 % (11.5-14.5); WHITE BLOOD COUNT 8.1 10^3/ul (4.8-10.8)
[2016-06-15 06:58] LABS: CREATININE 1.14 mg/dl (0.61-1.24)
[2016-06-15 06:59] LABS: CALCIUM 7.4 mg/dl (8.4-10.2)
[2016-06-15 07:50] VITALS: BP 195/95; RESP 18
[2016-06-15] MEDS: SILDENAFIL 20 MG TAB PO SCH (09:00)
[2016-06-15 11:00] VITALS: BP 129/60; PULSE 60
[2016-06-15] MEDS: LISINOPRIL 10 MG TAB PO SCH (11:23)
[2016-06-15] MEDS: ISOSORBIDE MONONITRATE(SR)30 MG TAB PO SCH (11:23)
[2016-06-15] MEDS: PAROXETINE 20 MG TAB PO SCH (11:24)
[2016-06-15] MEDS: PSYLLIUM (SUGAR FREE) PACKET PO SCH (11:25)
[2016-06-15] MEDS: ATORVASTATIN 40 MG TAB PO SCH (11:38)
[2016-06-15] MEDS ORDERED: PSYL3.4P5 PO (12:32)
--- NOTE | 2016-06-15 12:33 | PDOCDIS ---
Discharge Instructions CONDITION Patient Condition: Good HOME CARE INSTRUCTIONS: Diet Instructions: Reduced Sodium ACTIVITY: Activity Restrictions: No Restrictions FOLLOW UP/APPOINTMENTS Appointments F/U WITH YOUR PCP IN 1-2 WEEKS RIDDHI HOU June 15, 2016 12:33
--- NOTE | 2016-06-15 13:55 | PN ---
Date/Time of Note Date/Time of Note DATE: 06/15/16 TIME: 13:53 Assessment/Plan VTE Prophylaxis VTE Prophylaxis Intervention: ambulation Lines/Catheters IV C[facility]ter Type [facility]from [facility] Saline Lock Urinary Cath still in place: No Assessment/Plan Assessment/Plan Assessment * Hematochezia resolved * Lower GI bleed * CT abdomen/pelvis 06/11/2016 * Retained stool without obstruction. Descending and sigmoid colon diverticulosis. Colonoscopy 06/13/2016 Left-sided diverticulosis. No evidence of active bleeding or identifiable source of bleeding. Large internal hemorrhoids. * Hypertension * History of Diabetes mellitus * Hx of CHF with EF 35% * Hx of CAD * Obesity * Plan * Stable for outpatient management * follow up after 6-8 weeks Subjective 24 Hr Interval Summary Free Text/Dictation * Course reviewed with RN * patient seen and examined * no hematochezia * Hemoglobin 9.3 Exam/Review of Systems Vital Signs Vitals Vital Signs Date Time Temp Pulse Resp B/P Pulse Ox O2 Delivery O2 Flow Rate FiO2 06/15/16 07:50 98.6 101 18 195/95 100 06/13/16 15:15 Room Air 06/13/16 14:20 10 Intake and Output 06/14/16 06/14/16 06/15/16 15:00 23:00 07:00 Intake Total 840 ml 950 ml Output Total 820 ml 400 ml Balance 20 ml 550 ml Exam Constitutional: alert, oriented Head: normocephalic Neck: non-tender, supple Respiratory: clear to auscultation, normal air movement Cardiovascular: nl pulses, regular rate and rhythm Gastrointestinal: non-tender, soft Musculoskeletal: nl extremities to inspection, nl gait and stance Extremities: normal pulses Neurological: nl mental status, nl speech Skin: nl turgor, No rash or lesions Results Result Diagram: 06/15/16 0540 06/15/16 0540 Results 24 hrs Laboratory Tests Test 06/15/16 05:40 White Blood Count 8.1 Red Blood Count 3.18 L Hemoglobin 9.1 L Hematocrit 27.7 L Mean Corpuscular Volume 87.1 Mean Corpuscular Hemoglobin 28.6 L Mean Corpuscular Hemoglobin Concent 32.9 Red Cell Distribution Width 17.1 H Platelet Count 205 Mean Platelet Volume 11.6 H Neutrophils % 49.2 Lymphocytes % 30.0 Monocytes % 9.9 Eosinophils % 8.8 H Basophils % 0.7 Nucleated Red Blood Cells % 0.0 Neutrophils # 4.0 Lymphocytes # 2.4 Monocytes # 0.8 Eosinophils # 0.7 H Basophils # 0.1 Nucleated Red Blood Cells # 0.0 Sodium Level 142 Potassium Level 3.5 Chloride Level 113 H Carbon Dioxide Level 23 Anion Gap 10 Blood Urea Nitrogen 26 H Creatinine 1.14 Glucose Level 99 Calcium Level 7.4 L Medications Medications Current Medications Ondansetron HCl (Zofran Inj) 4 mg Q6H PRN IV NAUSEA AND/OR VOMITING; Start 06/12 at 04:30 Pantoprazole (Protonix Iv) 40 mg BID@06,18 IV Last administered on 06/15/16 06 :03; Admin Dose 40 MG; Start 06/12/16 at 09:00 Miscellaneous Information Patients own medicat... BID@10,16 XX ; Start 06/12/16 at 10:00 Lorazepam (Ativan) 1 mg Q12H PRN IV anxiety Last administered on 06/14/16 21: 24; Admin Dose 1 MG; Start 06/12/16 at 10:00 Hydralazine HCl (Apresoline) 50 mg TID PO Last administered on 06/15/16 13:00 ; Admin Dose 50 MG; Start 06/13/16 at 21:00 Isosorbide Mononitrate (Imdur) 30 mg DAILY PO Last administered on 06/15/16 11 :23; Admin Dose 30 MG; Start 06/13/16 at 15:30 Paroxetine HCl (Paxil) 20 mg DAILY PO Last administered on 06/15/16 11:24; Admin Dose 20 MG; Start 06/13/16 at 15:30 Sildenafil Citrate (Revatio) 20 mg DAILY PO Last administered on 06/14/16 09: 00; Admin Dose 20 MG; Start 06/14/16 at 09:00 Clonidine (Catapres) 0.1 mg BID PO Last administered on 06/15/16 08:01; Admin Dose 0.1 MG; Start 06/13/16 at 21:00 Lisinopril (Zestril) 10 mg BID PO Last administered on 06/15/16 11:23; Admin Dose 10 MG; Start 06/14/16 at 09:00 Hydralazine HCl (Apresoline) 10 mg Q4H PRN IV SBP>170; Start 06/13/16 at 17:30 Atorvastatin Calcium (Lipitor) 40 mg DAILY PO Last administered on 06/15/16 11 :38; Admin Dose 40 MG; Start 06/13/16 at 22:00 Patient Own Medication 1 ea QHS PO Last administered on 06/14/16 20:49; Admin Dose 1 EA; Start 06/14/16 at 21:00 Psyllium Hydrophilic Mucilloid (Metamucil (Sugar Free)) 1 pkt DAILY PO Last administered on 06/15/16 11:25; Admin Dose 1 PKT; Start 06/14/16 at 17:00 Carvedilol (Coreg) 12.5 mg BID PO Last administered on 06/15/16 08:01; Admin Dose 12.5 MG; Start 06/14/16 at 21:00 CARLOS LIND MD June 15, 2016 13:55
--- NOTE | 2016-06-15 15:39 | DS ---
DATE OF ADMISSION: 06/12/2016 DATE OF DISCHARGE: 06/15/2016 DISCHARGE DIAGNOSES: 1. Anemia secondary to acute blood loss anemia from gastrointestinal bleed, likely from diverticulo sis and possibly from internal hemorrhoids, now stable, status post 1 unit of packed red blood cells . Hold Plavix for the time being. The patient was told to resume in 2 weeks if he has no further b leeding. 2. History of cerebrovascular. Continue statin and will continue to hold Plavix for 2 weeks, and t he patient was told to resume if he has no further bleeding. 3. Congestive heart failure, stable. Follow up with the masonry contractor. Continue home medications. 4. Diabetes, stable. A1c is 6.9. 5. Hypertension, stable. Continue home medications. HOSPITAL COURSE: The patient is a 66-year-old male with a history of CVA, heart failure, diabetes, hypertension. The patient presents with a GI bleed. He was seen by GI where he had an EGD that iraida wed a normal EGD. The patient had a colonoscopy that showed diverticulosis and large internal hemor rhoids. There was no clear source of bleeding at the time of colonoscopy. Bleeding was felt to be secondary to diverticulosis as the bleeding was significant. His bleeding did resolve. He did have a drop in his hemoglobin and it was felt to be secondary to acute blood loss anemia from underlying gastrointestinal bleed. The patient was transfused 1 unit of packed red blood cells. Of note, the patient's Plavix was held. I had a discussion with GI, the patient was to hold Plavix for some kelton e. The patient did have another small episode of bleeding the day prior to discharge, which was fel t to possibly be from large internal hemorrhoids. The patient was started on Metamucil to alleviate constipation which could exacerbate both his hemorrhoids and diverticulosis. The patient was asymp tomatic on the day of discharge. He had no further GI bleeding. His hemoglobin was stable. On the day of discharge, his vitals, labs, physical exam were stable. He had no acute complaints. Questi ons were answered. CONDITION ON DISCHARGE: Stable. DISPOSITION: To home. MEDICATIONS: The patient is to continue his usual home medications. He was given a prescription fo r Metamucil. He was told to stop taking his Plavix for 2 weeks and to resume only if his bleeding h as completely resolved. He states that he was not taking aspirin, but on his home mediation reconci liation it did say that he was taking aspirin, and he was told to stop that as well. Once again, th e patient states that he was only taking Plavix and not aspirin. He was told to hold Plavix for 2 w eeks, only to resume after 2 weeks if his bleeding has resolved. FOLLOWUP: The patient is to follow up with his PCP in 1 to 2 weeks. Greater than 30 minutes was spent coordinating the discharge of this patient. Dictated By: RIDDHI HOU MD BS/NTS Conf#: [id number] DID#: [id number]
== END 2016-06-15 15:32 | disposition home or self-care (01) | DRG 378 ==
LOC: E/R 23:25 → PP2 06-12 01:53
PROVIDERS: ADMIT Family Medicine; ATTEND Family Medicine
PROC: 0DB68ZX Excision of Stomach, Via Natural or Artificial Opening Endoscopic, Diagnostic (ICD-10-PCS; principal; 2016-06-13 14:30)
PROC: 0DJD8ZZ Inspection of Lower Intestinal Tract, Via Natural or Artificial Opening Endoscopic (ICD-10-PCS; 2016-06-13 14:30)
PROC: 30233N1 Transfusion of Nonautologous Red Blood Cells into Peripheral Vein, Percutaneous Approach (ICD-10-PCS; 2016-06-14)
DX: K92.2 Gastrointestinal hemorrhage, unspecified (principal); I50.22 Chronic systolic (congestive) heart failure; I11.0 Hypertensive heart disease with heart failure; D62 Acute posthemorrhagic anemia; K57.90 Diverticulosis of intestine, part unspecified, without perforation or abscess without bleeding; K64.8 Other hemorrhoids; E11.9 Type 2 diabetes mellitus without complications; Z68.31 Body mass index [BMI] 31.0-31.9, adult; I25.10 Atherosclerotic heart disease of native coronary artery without angina pectoris; I10 Essential (primary) hypertension; E66.01 Morbid (severe) obesity due to excess calories; Z86.73 Personal history of transient ischemic attack (TIA), and cerebral infarction without residual deficits
CPT/HCPCS: 36415; 36430; 71010; 74176; 78278; 80048; 80053; 80061; 81003; 83036; 83690; 83735; 84100; 84484; 85014; 85018; 85025; 85610; 85730; 86850; 86900; 86901; 86920; 88305; 88312; 93005; 96374; 96375; A9560; C9113; J0360; J2060; J2405; J7030; J7040; P9016

== ENCOUNTER 2017-06-29 20:54 | Inpatient (IN) | END 2017-07-11 18:41 | DRG 871 ==